=== PATIENT | female | born 1950 | race Caucasian/White ===

== ENCOUNTER 2023-07-16 09:19 | Inpatient (IN) | payer OTHER ==
[2023-07-16] VITALS (13 sets, daily range): BP systolic 86–208; PULSE 77–126; RESP 18–26; TEMP 98–98.9; O2SAT 94–100
[~2023-07-16] VITALS: Ht 152.4 cm; Wt 54.4 kg
[2023-07-16] MEDS ORDERED: methylPREDNISolone SOD SUCC/PF 62.5 MG/ML VIAL IVP ONE (09:30)
[2023-07-16] MEDS ORDERED: IPRATROPIUM/ALBUTEROL SULFATE 3 ML AMPUL.NEB (DUONEB) INH ONE (09:30)
[2023-07-16 09:45] LABS: BASOPHILS # (AUTO) 0.1 K/uL (0.0-0.2); BASOPHILS % (AUTO) 0.3 % (0.0-2.0); EOSINOPHILS # (AUTO) 0.1 K/uL (0.0-0.4); EOSINOPHILS % (AUTO) 0.6 % (0.0-4.0); HEMATOCRIT 37.9 % (36-48); HEMOGLOBIN 11.7 g/dL (12.0-16.0); LYMPHOCYTES # (AUTO) 2.4 K/uL (1.0-5.5); LYMPHOCYTES % (AUTO) 13.5 % (20.5-51.5); MEAN CORPUSCULAR HEMOGLOBIN 28 pg (27-31); MEAN CORPUSCULAR HGB CONC 31 % (32-36); MEAN CORPUSCULAR VOLUME 91 fL (79.0-98.0); MONOCYTES # (AUTO) 1.7 K/uL (0.0-1.0); MONOCYTES % (AUTO) 9.5 % (1.7-9.3); NEUTROPHILS # (AUTO) 13.6 K/uL (1.8-7.7); NEUTROPHILS % (AUTO) 76.1 % (40.0-70.0); PLATELET COUNT (AUTO) 495 K/uL (130-430); RED BLOOD CELL COUNT(AUTO) 4.16 MIL/uL (4.2-6.2); RED CELL DISTRIBUTION WIDTH 14.5 % (9.0-15.0); WHITE BLOOD COUNT (AUTO) 17.8 K/uL (4.8-10.8)
[2023-07-16] MEDS ORDERED: PROPOFOL DRIP 100 ML IV ONE ×3 (09:48→16:46)
[2023-07-16] MEDS ORDERED: LORA-259 PO (09:49)
[2023-07-16] MEDS ORDERED: PRO40 PO (09:49)
[2023-07-16] MEDS ORDERED: HYDR-4038 PO (09:49)
[2023-07-16] MEDS ORDERED: ALBU2.5V7 INH (09:49)
[2023-07-16] MEDS ORDERED: DOCU-144 PO (09:49)
[2023-07-16] MEDS ORDERED: PREG75CA PO (09:49)
[2023-07-16] MEDS ORDERED: LISI20TA30 PO (09:49)
[2023-07-16] MEDS ORDERED: ASA81 PO (09:49)
[2023-07-16] MEDS ORDERED: ETOMIDATE 20 MG/ 10 ML VIAL (AMIDATE) IVP ONE (10:00)
[2023-07-16] MEDS ORDERED: NS 500 ML IV ONE (10:00)
[2023-07-16 10:06] LABS: INR 0.9 (0.8-1.2); PROTHROMBIN TIME 9.4 SECS (9.5-12.5)
[2023-07-16] MEDS ORDERED: MIDAZOLAM HCL 5 MG/5 ML VIAL IVP ONE (10:15)
[2023-07-16] MEDS ORDERED: MIDAZOLAM HCL 5 MG/5 ML VIAL ONE (10:16)
[2023-07-16 10:23] LABS: ALANINE AMINOTRANSFERASE 25 U/L (12-78); ALBUMIN 3.5 g/dL (3.4-4.8); ASPARTATE AMINOTRANSFERASE 17 U/L (10-37); CALCIUM 9.6 mg/dL (8.4-11.0); CHLORIDE 99 mmol/L (98-107); CREATINE KINASE, TOTAL 42 U/L (26-192); GLUCOSE 166 mg/dL (74-106); LACTATE DEHYDROGENASE 203 U/L (81-234); SODIUM SERUM 139 mmol/L (136-145); TOTAL BILIRUBIN 0.1 mg/dL (0.0-1.0); TOTAL PROTEIN, SERUM 6.9 g/dL (6.4-8.3); UREA NITROGEN, BLOOD 23 mg/dL (8-21)
[2023-07-16 10:31] LABS: ANION GAP < 3 (5-15); CARBON DIOXIDE 44 mmol/L (23-29)
[2023-07-16 10:44] LABS: ABG O2 SAT% ESTIMATE 92.7 % (94.0-100.0); ALLEN'S TEST POSITIVE (P); BLOOD GAS HCO3 44.2 mmol/L (21.0-27.0); BLOOD GAS PCO2 167.2 mmHg (35.0-45.0); BLOOD GAS PO2 92.7 mmHg (75.0-100.0)
[2023-07-16] MEDS ORDERED: ASPIRIN 300 MG/SUPP.RECT SUPP RC ONE (10:45)
[2023-07-16 12:01] LABS: COVID19 ANTIGEN SOFIA FIA NEGATIVE (NEGATIVE)
[2023-07-16 12:02] LABS: INFLUENZA TYPE A Negative (NEGATIVE); INFLUENZA TYPE B NEGATIVE (NEGATIVE)
[2023-07-16 12:08] LABS: BILIRUBIN,URINE NEGATIVE (NEGATIVE); CLARITY/URINE CLEAR (CLEAR); COLOR,URINE YELLOW (YELLOW); GLUCOSE,URINE NEGATIVE (NEGATIVE); KETONES,URINE NEGATIVE (NEGATIVE); LEUKOCYTE ESTERASE ,URINE NEGATIVE (NEGATIVE); NITRITE, URINE NEGATIVE (NEGATIVE); PH,URINE 6.5 (5.0-8.0); PROTEIN URINE 1+ (NEGATIVE); UROBILINOGEN,URINE 0.2 (0.2-1.0)
[2023-07-16 12:14] LABS: BLOOD, URINE TRACE (NEGATIVE)
[2023-07-16 12:20] LABS: BACTERIA,URINE FEW /HPF (None Seen); MUCUS,URINE 1+ /LPF (None Seen)
[2023-07-16] MEDS: D5/0.45 NS 1,000 ML IV SCH ×2 (12:32→22:02)
[2023-07-16 14:23] LABS: BLOOD GAS PH 7.432 (7.350-7.450)
[2023-07-16 14:24] LABS: ABG O2 SAT% ESTIMATE 99.5 % (94.0-100.0); ALLEN'S TEST POSITIVE (P); BLOOD GAS BASE EXCESS 7.4 mmol/L (-3.0-3.0); BLOOD GAS HCO3 33.2 mmol/L (21.0-27.0); BLOOD GAS PO2 233.7 mmHg (75.0-100.0)
[2023-07-16] MEDS ORDERED: ENOXAPARIN SODIUM 30 MG/0.3 ML SYRINGE SUBCUT ONE (14:30)
[2023-07-16] MEDS ORDERED: PANTOPRAZOLE SODIUM 40 MG/VIAL (PROTONIX) IVP ONE (14:30)
[2023-07-16] MEDS ORDERED: PIPERACILLIN/TAZO 4.5GM/DEX-IS 100 ML IV ONE (17:30)
[2023-07-16] MEDS: METHYLPREDNISOLONE SOD SUCC 40 MG/ML VIAL IVP SCH (22:02)
[2023-07-17] VITALS (34 sets, daily range): BP systolic 111–203; PULSE 48–77; RESP 19–24; TEMP 97.1–97.7; O2SAT 94–100
[2023-07-17] MEDS: PROPOFOL DRIP 100 ML IV PRN ×2 (01:12→14:39)
[2023-07-17] MEDS: PIPERACILLIN/TAZO 4.5GM/DEX-IS 100 ML IV SCH ×3 (01:13→18:56)
[2023-07-17] MEDS: IPRATROPIUM/ALBUTEROL SULFATE 3 ML AMPUL.NEB (DUONEB) INH SCH ×3 (02:05→19:45)
[2023-07-17] MEDS: METHYLPREDNISOLONE SOD SUCC 40 MG/ML VIAL IVP SCH ×3 (05:10→20:54)
[2023-07-17] MEDS: D5/0.45 NS 1,000 ML IV SCH ×2 (05:11→09:18)
[2023-07-17 06:29] LABS: BASOPHILS % (AUTO) 0.1 % (0.0-2.0); HEMATOCRIT 32.1 % (36-48); HEMOGLOBIN 9.9 g/dL (12.0-16.0); LYMPHOCYTES # (AUTO) 0.8 K/uL (1.0-5.5); LYMPHOCYTES % (AUTO) 8.2 % (20.5-51.5); MEAN CORPUSCULAR HEMOGLOBIN 28 pg (27-31); MEAN CORPUSCULAR HGB CONC 31 % (32-36); MEAN CORPUSCULAR VOLUME 89 fL (79.0-98.0); MONOCYTES # (AUTO) 0.8 K/uL (0.0-1.0); MONOCYTES % (AUTO) 7.5 % (1.7-9.3); NEUTROPHILS # (AUTO) 8.7 K/uL (1.8-7.7); NEUTROPHILS % (AUTO) 84.2 % (40.0-70.0); PLATELET COUNT (AUTO) 288 K/uL (130-430); RED BLOOD CELL COUNT(AUTO) 3.58 MIL/uL (4.2-6.2); RED CELL DISTRIBUTION WIDTH 14.8 % (9.0-15.0); WHITE BLOOD COUNT (AUTO) 10.3 K/uL (4.8-10.8)
[2023-07-17 06:57] LABS: ALANINE AMINOTRANSFERASE 18 U/L (12-78); ALBUMIN 2.8 g/dL (3.4-4.8); ANION GAP 5 (5-15); ASPARTATE AMINOTRANSFERASE 17 U/L (10-37); CALCIUM 9.2 mg/dL (8.4-11.0); CARBON DIOXIDE 31 mmol/L (23-29); CHLORIDE 100 mmol/L (98-107); CREATININE 0.59 mg/dL (0.55-1.30); GLUCOSE 147 mg/dL (74-106); POTASSIUM 3.5 mmol/L (3.5-5.1); SODIUM SERUM 136 mmol/L (136-145); TOTAL BILIRUBIN 0.3 mg/dL (0.0-1.0); TOTAL PROTEIN, SERUM 5.5 g/dL (6.4-8.3); UREA NITROGEN, BLOOD 23 mg/dL (8-21)
[2023-07-17] MEDS: PANTOPRAZOLE SODIUM 40 MG/VIAL (PROTONIX) IVP SCH (09:19)
[2023-07-17] MEDS: ENOXAPARIN SODIUM 30 MG/0.3 ML SYRINGE SUBCUT SCH (09:19)
[2023-07-17] MEDS ORDERED: *TPN PER PHARMACY XX PRN (10:30)
[2023-07-17 11:21] LABS: PHOSPHORUS 2.9 mg/dL (2.7-4.5)
[2023-07-17] MEDS ORDERED: amLODIPine BESYLATE 10 MG TABLET PO ONE (18:45)
[2023-07-17] MEDS ORDERED: hydrALAZINE HCL 20 MG/ML VIAL IVP PRN (18:45)
[2023-07-17] MEDS ORDERED: VANCOMYCIN HCL 750 MG in NS 250 ML IV SCH (20:00)
[2023-07-17] MEDS ORDERED: MIDAZOLAM IN NACL,ISO-OSMOT/PF 100 ML IV PRN (20:45)
[2023-07-17] MEDS ORDERED: TPN PERIPHERAL 0.0001 ML, SODIUM CHLORIDE 40 MEQ, POTASSIUM CHLORIDE 20 MEQ, K PHOS 9 M... IV SCH ×9 (21:00)
[2023-07-17] MEDS: ACETAMINOPHEN 325 MG TABLET PO PRN (21:04)
[2023-07-18] VITALS (37 sets, daily range): BP systolic 116–179; PULSE 48–93; RESP 13–24; TEMP 96.5–98.7; O2SAT 95–98
[2023-07-18] MEDS ORDERED: DEXTROSE 50% JECT 50 ML DISP.SYRIN IVP PRN
[2023-07-18] MEDS: IPRATROPIUM/ALBUTEROL SULFATE 3 ML AMPUL.NEB (DUONEB) INH SCH ×4 (00:31→19:49)
[2023-07-18] MEDS: D5/0.45 NS 1,000 ML IV SCH ×3 (03:15→21:25)
[2023-07-18 05:18] LABS: BASOPHILS % (AUTO) 0.1 % (0.0-2.0); HEMOGLOBIN 9.5 g/dL (12.0-16.0); LYMPHOCYTES # (AUTO) 0.7 K/uL (1.0-5.5); LYMPHOCYTES % (AUTO) 7.6 % (20.5-51.5); MEAN CORPUSCULAR HEMOGLOBIN 28 pg (27-31); MEAN CORPUSCULAR HGB CONC 33 % (32-36); MEAN CORPUSCULAR VOLUME 87 fL (79.0-98.0); MONOCYTES # (AUTO) 0.5 K/uL (0.0-1.0); NEUTROPHILS # (AUTO) 7.5 K/uL (1.8-7.7); NEUTROPHILS % (AUTO) 86.3 % (40.0-70.0); PLATELET COUNT (AUTO) 273 K/uL (130-430); RED BLOOD CELL COUNT(AUTO) 3.34 MIL/uL (4.2-6.2); RED CELL DISTRIBUTION WIDTH 14.9 % (9.0-15.0); WHITE BLOOD COUNT (AUTO) 8.7 K/uL (4.8-10.8)
[2023-07-18 05:40] LABS: ANION GAP 10 (5-15); CALCIUM 9.1 mg/dL (8.4-11.0); CARBON DIOXIDE 29 mmol/L (23-29); CHLORIDE 101 mmol/L (98-107); CREATININE 0.49 mg/dL (0.55-1.30); GLUCOSE 152 mg/dL (74-106); SODIUM SERUM 140 mmol/L (136-145); UREA NITROGEN, BLOOD 15 mg/dL (8-21)
[2023-07-18] MEDS: METHYLPREDNISOLONE SOD SUCC 40 MG/ML VIAL IVP SCH ×3 (06:02→21:24)
[2023-07-18] MEDS: PIPERACILLIN/TAZO 4.5GM/DEX-IS 100 ML IV SCH ×3 (06:03→17:54)
[2023-07-18 06:12] LABS: POTASSIUM 2.7 mmol/L (3.5-5.1)
[2023-07-18] MEDS: POTASSIUM CHLORIDE 40 MEQ in NS 250 ML IV SCH ×2 (08:16→14:48)
[2023-07-18] MEDS: PANTOPRAZOLE SODIUM 40 MG/VIAL (PROTONIX) IVP SCH (09:26)
[2023-07-18] MEDS: ENOXAPARIN SODIUM 30 MG/0.3 ML SYRINGE SUBCUT SCH (09:26)
[2023-07-18] MEDS: amLODIPine BESYLATE 10 MG TABLET PO SCH (09:27)
[2023-07-18] MEDS ORDERED: *HEPARIN PER PHARMACY XX PRN (11:30)
[2023-07-18] MEDS ORDERED: HEPARIN SODIUM,PORCINE 3000 UNITS/0.6 ML BOLUS IVP PRN (11:45)
[2023-07-18] MEDS ORDERED: BISACODYL 10 MG/SUPPOSITORY RC PRN (15:15)
[2023-07-18] MEDS: HEPARIN 25,000 UNITS in 250 ML PREMIX IV PRN (17:56)
[2023-07-18] MEDS: DOCUSATE SODIUM 100 MG CAPSULE PO SCH (21:24)
[2023-07-19] VITALS (32 sets, daily range): BP systolic 118–181; PULSE 46–91; RESP 19–29; TEMP 97.9–98.4; O2SAT 93–99
[2023-07-19] MEDS: IPRATROPIUM/ALBUTEROL SULFATE 3 ML AMPUL.NEB (DUONEB) INH SCH ×4 (00:44→19:56)
[2023-07-19] MEDS: PIPERACILLIN/TAZO 4.5GM/DEX-IS 100 ML IV SCH ×3 (02:39→17:26)
[2023-07-19 05:22] LABS: BASOPHILS % (AUTO) 0.1 % (0.0-2.0); HEMATOCRIT 29.9 % (36-48); HEMOGLOBIN 9.5 g/dL (12.0-16.0); LYMPHOCYTES # (AUTO) 1.1 K/uL (1.0-5.5); MEAN CORPUSCULAR HEMOGLOBIN 28 pg (27-31); MEAN CORPUSCULAR HGB CONC 32 % (32-36); MEAN CORPUSCULAR VOLUME 88 fL (79.0-98.0); MONOCYTES # (AUTO) 0.9 K/uL (0.0-1.0); MONOCYTES % (AUTO) 8.3 % (1.7-9.3); NEUTROPHILS # (AUTO) 8.3 K/uL (1.8-7.7); NEUTROPHILS % (AUTO) 80.6 % (40.0-70.0); PLATELET COUNT (AUTO) 279 K/uL (130-430); RED BLOOD CELL COUNT(AUTO) 3.42 MIL/uL (4.2-6.2); RED CELL DISTRIBUTION WIDTH 15.1 % (9.0-15.0); WHITE BLOOD COUNT (AUTO) 10.3 K/uL (4.8-10.8)
[2023-07-19] MEDS: METHYLPREDNISOLONE SOD SUCC 40 MG/ML VIAL IVP SCH ×3 (05:51→21:38)
[2023-07-19 05:52] LABS: ALANINE AMINOTRANSFERASE 19 U/L (12-78); ALBUMIN 2.7 g/dL (3.4-4.8); ANION GAP 8 (5-15); ASPARTATE AMINOTRANSFERASE 13 U/L (10-37); CARBON DIOXIDE 27 mmol/L (23-29); CHLORIDE 102 mmol/L (98-107); GLUCOSE 130 mg/dL (74-106); POTASSIUM 3.6 mmol/L (3.5-5.1); SODIUM SERUM 137 mmol/L (136-145); TOTAL BILIRUBIN 0.3 mg/dL (0.0-1.0); TOTAL PROTEIN, SERUM 5.3 g/dL (6.4-8.3); UREA NITROGEN, BLOOD 13 mg/dL (8-21)
[2023-07-19] MEDS: DOCUSATE SODIUM 100 MG CAPSULE PO SCH ×2 (09:00→21:24)
[2023-07-19] MEDS: amLODIPine BESYLATE 10 MG TABLET PO SCH (09:57)
[2023-07-19] MEDS: PANTOPRAZOLE SODIUM 40 MG/VIAL (PROTONIX) IVP SCH (09:58)
[2023-07-19] MEDS: D5/0.45 NS 1,000 ML IV SCH ×2 (09:58→19:15)
[2023-07-19 11:19] LABS: ABG O2 SAT% ESTIMATE 98.7 % (94.0-100.0); BLOOD GAS BASE EXCESS 2.4 mmol/L (-3.0-3.0); BLOOD GAS HCO3 26.4 mmol/L (21.0-27.0); BLOOD GAS PCO2 38.9 mmHg (35.0-45.0); BLOOD GAS PH 7.449 (7.350-7.450); BLOOD GAS PO2 128.3 mmHg (75.0-100.0)
[2023-07-19 11:26] LABS: ALLEN'S TEST POSITIVE (P)
[2023-07-19] MEDS: HEPARIN 25,000 UNITS in 250 ML PREMIX IV PRN ×3 (12:00→21:37)
[2023-07-19] MEDS: ACETAMINOPHEN 325 MG TABLET PO PRN (21:31)
[2023-07-20] VITALS (25 sets, daily range): BP systolic 105–155; PULSE 58–92; RESP 16–25; TEMP 96.2–98.7; O2SAT 95–98
[2023-07-20] MEDS: IPRATROPIUM/ALBUTEROL SULFATE 3 ML AMPUL.NEB (DUONEB) INH SCH ×3 (01:22→14:32)
[2023-07-20] MEDS: PIPERACILLIN/TAZO 4.5GM/DEX-IS 100 ML IV SCH ×2 (02:09→08:51)
[2023-07-20] MEDS: D5/0.45 NS 1,000 ML IV SCH ×2 (05:04→22:31)
[2023-07-20 05:44] LABS: BASOPHILS % (AUTO) 0.1 % (0.0-2.0); HEMATOCRIT 34.3 % (36-48); HEMOGLOBIN 10.8 g/dL (12.0-16.0); LYMPHOCYTES # (AUTO) 0.6 K/uL (1.0-5.5); LYMPHOCYTES % (AUTO) 6.9 % (20.5-51.5); MEAN CORPUSCULAR HEMOGLOBIN 28 pg (27-31); MEAN CORPUSCULAR HGB CONC 31 % (32-36); MEAN CORPUSCULAR VOLUME 88 fL (79.0-98.0); MONOCYTES # (AUTO) 0.5 K/uL (0.0-1.0); MONOCYTES % (AUTO) 5.6 % (1.7-9.3); NEUTROPHILS # (AUTO) 7.4 K/uL (1.8-7.7); NEUTROPHILS % (AUTO) 87.4 % (40.0-70.0); PLATELET COUNT (AUTO) 318 K/uL (130-430); RED BLOOD CELL COUNT(AUTO) 3.89 MIL/uL (4.2-6.2); WHITE BLOOD COUNT (AUTO) 8.5 K/uL (4.8-10.8)
[2023-07-20] MEDS: METHYLPREDNISOLONE SOD SUCC 40 MG/ML VIAL IVP SCH ×3 (06:35→21:59)
[2023-07-20 06:53] LABS: ALANINE AMINOTRANSFERASE 21 U/L (12-78); ANION GAP 6 (5-15); ASPARTATE AMINOTRANSFERASE 11 U/L (10-37); CALCIUM 9.5 mg/dL (8.4-11.0); CARBON DIOXIDE 32 mmol/L (23-29); CHLORIDE 100 mmol/L (98-107); CREATININE 0.49 mg/dL (0.55-1.30); GLUCOSE 138 mg/dL (74-106); POTASSIUM 3.3 mmol/L (3.5-5.1); SODIUM SERUM 138 mmol/L (136-145); TOTAL BILIRUBIN 0.3 mg/dL (0.0-1.0); TOTAL PROTEIN, SERUM 6.1 g/dL (6.4-8.3); UREA NITROGEN, BLOOD 13 mg/dL (8-21)
[2023-07-20] MEDS: HEPARIN 25,000 UNITS in 250 ML PREMIX IV PRN ×3 (07:14→22:46)
[2023-07-20] MEDS: DOCUSATE SODIUM 100 MG CAPSULE PO SCH ×2 (08:49→21:58)
[2023-07-20] MEDS: PANTOPRAZOLE SODIUM 40 MG/VIAL (PROTONIX) IVP SCH (08:49)
[2023-07-20] MEDS: amLODIPine BESYLATE 10 MG TABLET PO SCH (08:51)
[2023-07-20] MEDS: CEFEPIME 2 GM in D5W 100 ML IV SCH (21:58)
[2023-07-20] MEDS: ACETAMINOPHEN 325 MG TABLET PO PRN (23:21)
[2023-07-21] VITALS (12 sets, daily range): BP systolic 119–162; PULSE 55–71; RESP 18–20; TEMP 96.3–98.8; O2SAT 97–98
[2023-07-21] MEDS: IPRATROPIUM/ALBUTEROL SULFATE 3 ML AMPUL.NEB (DUONEB) INH SCH ×5 (01:11→20:00)
[2023-07-21] MEDS: D5/0.45 NS 1,000 ML IV SCH ×3 (01:12→20:48)
[2023-07-21 05:10] LABS: BASOPHILS % (AUTO) 0.1 % (0.0-2.0); HEMATOCRIT 36.4 % (36-48); HEMOGLOBIN 11.3 g/dL (12.0-16.0); LYMPHOCYTES # (AUTO) 0.9 K/uL (1.0-5.5); LYMPHOCYTES % (AUTO) 7.6 % (20.5-51.5); MEAN CORPUSCULAR HEMOGLOBIN 27 pg (27-31); MEAN CORPUSCULAR HGB CONC 31 % (32-36); MEAN CORPUSCULAR VOLUME 88 fL (79.0-98.0); MONOCYTES # (AUTO) 0.9 K/uL (0.0-1.0); MONOCYTES % (AUTO) 7.9 % (1.7-9.3); NEUTROPHILS # (AUTO) 9.6 K/uL (1.8-7.7); NEUTROPHILS % (AUTO) 84.4 % (40.0-70.0); PLATELET COUNT (AUTO) 359 K/uL (130-430); RED BLOOD CELL COUNT(AUTO) 4.12 MIL/uL (4.2-6.2); RED CELL DISTRIBUTION WIDTH 14.5 % (9.0-15.0); WHITE BLOOD COUNT (AUTO) 11.4 K/uL (4.8-10.8)
[2023-07-21] MEDS: METHYLPREDNISOLONE SOD SUCC 40 MG/ML VIAL IVP SCH ×3 (05:35→20:44)
[2023-07-21] MEDS: HEPARIN 25,000 UNITS in 250 ML PREMIX IV PRN ×2 (06:10→15:42)
[2023-07-21] MEDS: DOCUSATE SODIUM 100 MG CAPSULE PO SCH ×2 (08:26→20:44)
[2023-07-21] MEDS: amLODIPine BESYLATE 10 MG TABLET PO SCH (08:27)
[2023-07-21] MEDS: PANTOPRAZOLE SODIUM 40 MG/VIAL (PROTONIX) IVP SCH (08:27)
[2023-07-21] MEDS: CEFEPIME 2 GM in D5W 100 ML IV SCH ×2 (08:30→20:46)
[2023-07-21] MEDS: HEPARIN SODIUM,PORCINE 2000 UNITS/0.4 ML BOLUS IVP PRN ×2 (15:17→23:53)
[2023-07-21] MEDS: traZODone HCL 50 MG TABLET (DESYREL) PO PRN (22:53)
[2023-07-21] MEDS: ACETAMINOPHEN 325 MG TABLET PO PRN (22:54)
[2023-07-22] VITALS (15 sets, daily range): BP systolic 126–161; PULSE 54–88; RESP 16–20; TEMP 98.1–99.1; O2SAT 97–100
[2023-07-22] MEDS: HEPARIN 25,000 UNITS in 250 ML PREMIX IV PRN ×2 (00:01→14:07)
[2023-07-22] MEDS: IPRATROPIUM/ALBUTEROL SULFATE 3 ML AMPUL.NEB (DUONEB) INH SCH ×4 (01:30→20:23)
[2023-07-22] MEDS: METHYLPREDNISOLONE SOD SUCC 40 MG/ML VIAL IVP SCH ×3 (06:27→20:59)
[2023-07-22] MEDS: D5/0.45 NS 1,000 ML IV SCH ×3 (07:15→21:21)
[2023-07-22] MEDS: PANTOPRAZOLE SODIUM 40 MG/VIAL (PROTONIX) IVP SCH (08:15)
[2023-07-22] MEDS: DOCUSATE SODIUM 100 MG CAPSULE PO SCH ×2 (08:16→21:00)
[2023-07-22] MEDS: CEFEPIME 2 GM in D5W 100 ML IV SCH ×2 (08:16→20:59)
[2023-07-22] MEDS: amLODIPine BESYLATE 10 MG TABLET PO SCH (08:17)
[2023-07-22] MEDS: ACETAMINOPHEN 325 MG TABLET PO PRN ×2 (11:18→21:01)
[2023-07-22] MEDS: HEPARIN SODIUM,PORCINE 2000 UNITS/0.4 ML BOLUS IVP PRN (14:04)
[2023-07-22] MEDS: traZODone HCL 50 MG TABLET (DESYREL) PO PRN (21:00)
[2023-07-23] VITALS (13 sets, daily range): BP systolic 118–138; PULSE 50–75; RESP 16–19; TEMP 97.1–98.5; O2SAT 96–100
[2023-07-23] MEDS: HEPARIN 25,000 UNITS in 250 ML PREMIX IV PRN ×4 (01:37→21:50)
[2023-07-23] MEDS: IPRATROPIUM/ALBUTEROL SULFATE 3 ML AMPUL.NEB (DUONEB) INH SCH ×4 (03:09→19:50)
[2023-07-23] MEDS: ACETAMINOPHEN 325 MG TABLET PO PRN ×2 (05:25→23:24)
[2023-07-23] MEDS ORDERED: METHYLPREDNISOLONE SOD SUCC 40 MG/ML VIAL IVP SCH (06:00)
[2023-07-23] MEDS: DOCUSATE SODIUM 100 MG CAPSULE PO SCH ×2 (09:15→21:00)
[2023-07-23] MEDS: amLODIPine BESYLATE 10 MG TABLET PO SCH (09:15)
[2023-07-23] MEDS: PANTOPRAZOLE SODIUM 40 MG/VIAL (PROTONIX) IVP SCH (09:16)
[2023-07-23] MEDS: CEFEPIME 2 GM in D5W 100 ML IV SCH ×2 (09:16→21:54)
[2023-07-23 12:47] LABS: BASOPHILS % (AUTO) 0.1 % (0.0-2.0); HEMATOCRIT 32.5 % (36-48); HEMOGLOBIN 10.3 g/dL (12.0-16.0); LYMPHOCYTES # (AUTO) 0.6 K/uL (1.0-5.5); LYMPHOCYTES % (AUTO) 5.5 % (20.5-51.5); MEAN CORPUSCULAR HEMOGLOBIN 28 pg (27-31); MEAN CORPUSCULAR HGB CONC 32 % (32-36); MEAN CORPUSCULAR VOLUME 89 fL (79.0-98.0); MONOCYTES # (AUTO) 1.1 K/uL (0.0-1.0); MONOCYTES % (AUTO) 9.8 % (1.7-9.3); NEUTROPHILS # (AUTO) 9.1 K/uL (1.8-7.7); NEUTROPHILS % (AUTO) 84.6 % (40.0-70.0); PLATELET COUNT (AUTO) 293 K/uL (130-430); RED BLOOD CELL COUNT(AUTO) 3.66 MIL/uL (4.2-6.2); RED CELL DISTRIBUTION WIDTH 13.9 % (9.0-15.0); WHITE BLOOD COUNT (AUTO) 10.8 K/uL (4.8-10.8)
[2023-07-23] MEDS ORDERED: BENZOCAINE 20% 0.5mL UD SPRAY MM ONE ×2 (13:03→13:42)
[2023-07-23] MEDS ORDERED: LIDOCAINE 2% JELLY UROJECT 10 ML MM ONE (13:03)
[2023-07-23] MEDS ORDERED: fentaNYL CITRATE/PF 100 MCG/2 ML AMP ONE (13:03)
[2023-07-23] MEDS ORDERED: MIDAZOLAM HCL 5 MG/5 ML VIAL ONE (13:03)
[2023-07-23] MEDS: METHYLPREDNISOLONE SOD SUCC 40 MG/ML VIAL IVP SCH ×2 (16:01→21:59)
[2023-07-23] MEDS: D5/0.45 NS 1,000 ML IV SCH ×2 (16:01→23:15)
[2023-07-24] VITALS (10 sets, daily range): BP systolic 126–162; PULSE 56–70; RESP 18–20; TEMP 98.1–98.4; O2SAT 98–100
[2023-07-24] MEDS: IPRATROPIUM/ALBUTEROL SULFATE 3 ML AMPUL.NEB (DUONEB) INH SCH ×4 (01:45→20:02)
[2023-07-24] MEDS: D5/0.45 NS 1,000 ML IV SCH ×2 (05:30→18:22)
[2023-07-24] MEDS: METHYLPREDNISOLONE SOD SUCC 40 MG/ML VIAL IVP SCH ×3 (05:31→21:00)
[2023-07-24 06:31] LABS: HEMATOCRIT 34.7 % (36-48); HEMOGLOBIN 10.7 g/dL (12.0-16.0); LYMPHOCYTES # (AUTO) 0.8 K/uL (1.0-5.5); LYMPHOCYTES % (AUTO) 7.4 % (20.5-51.5); MEAN CORPUSCULAR HEMOGLOBIN 28 pg (27-31); MEAN CORPUSCULAR HGB CONC 31 % (32-36); MEAN CORPUSCULAR VOLUME 89 fL (79.0-98.0); MONOCYTES # (AUTO) 0.8 K/uL (0.0-1.0); MONOCYTES % (AUTO) 7.3 % (1.7-9.3); NEUTROPHILS # (AUTO) 9.8 K/uL (1.8-7.7); NEUTROPHILS % (AUTO) 85.3 % (40.0-70.0); PLATELET COUNT (AUTO) 314 K/uL (130-430); RED CELL DISTRIBUTION WIDTH 14.1 % (9.0-15.0); WHITE BLOOD COUNT (AUTO) 11.5 K/uL (4.8-10.8)
[2023-07-24] MEDS: HEPARIN 25,000 UNITS in 250 ML PREMIX IV PRN (06:50)
[2023-07-24] MEDS: amLODIPine BESYLATE 10 MG TABLET PO SCH (10:12)
[2023-07-24] MEDS: PANTOPRAZOLE SODIUM 40 MG/VIAL (PROTONIX) IVP SCH (10:12)
[2023-07-24] MEDS: DOCUSATE SODIUM 100 MG CAPSULE PO SCH ×2 (10:12→21:00)
[2023-07-24] MEDS: CEFEPIME 2 GM in D5W 100 ML IV SCH ×2 (10:13→21:01)
[2023-07-24] MEDS ORDERED: APIXABAN 2.5 MG TABLET PO ONE (10:45)
[2023-07-24] MEDS ORDERED: BALSAM PERU/CASTOR OIL 56.7 GM OINT...G. TP ONE (17:00)
[2023-07-24] MEDS ORDERED: MENTHOL/ZINC OXIDE 113 GM OINT. TP PRN (17:30)
[2023-07-24] MEDS: ACETAMINOPHEN 325 MG TABLET PO PRN (20:59)
[2023-07-24] MEDS: traZODone HCL 50 MG TABLET (DESYREL) PO PRN (21:00)
[2023-07-24] MEDS: APIXABAN 2.5 MG TABLET PO SCH (21:04)
[2023-07-25] VITALS (10 sets, daily range): BP systolic 107–129; PULSE 60–69; RESP 17–20; TEMP 97.8–98.3; O2SAT 97–100
[2023-07-25] MEDS: IPRATROPIUM/ALBUTEROL SULFATE 3 ML AMPUL.NEB (DUONEB) INH SCH ×4 (01:30→19:47)
[2023-07-25] MEDS: ACETAMINOPHEN 325 MG TABLET PO PRN (03:22)
[2023-07-25] MEDS: D5/0.45 NS 1,000 ML IV SCH ×2 (04:05→16:35)
[2023-07-25] MEDS: METHYLPREDNISOLONE SOD SUCC 40 MG/ML VIAL IVP SCH ×3 (05:23→22:02)
[2023-07-25] MEDS: PANTOPRAZOLE SODIUM 40 MG/VIAL (PROTONIX) IVP SCH (09:00)
[2023-07-25] MEDS ORDERED: BALSAM PERU/CASTOR OIL 56.7 GM OINT...G. TP SCH (09:00)
[2023-07-25] MEDS: DOCUSATE SODIUM 100 MG CAPSULE PO SCH ×2 (09:00→21:45)
[2023-07-25] MEDS: APIXABAN 2.5 MG TABLET PO SCH ×2 (10:04→21:45)
[2023-07-25] MEDS: CEFEPIME 2 GM in D5W 100 ML IV SCH ×2 (10:04→22:03)
[2023-07-25] MEDS: amLODIPine BESYLATE 10 MG TABLET PO SCH (10:06)
[2023-07-25] MEDS ORDERED: LORazepam 1 MG TABLET PO PRN (18:45)
[2023-07-25] MEDS: traZODone HCL 50 MG TABLET (DESYREL) PO PRN (23:37)
[2023-07-26 00:32] VITALS: O2SAT 99
[2023-07-26 00:34] VITALS: BP_SYST 129; PULSE 62; RESP 20; TEMP 98.3; O2SAT 99
[2023-07-26] MEDS: ACETAMINOPHEN 325 MG TABLET PO PRN ×2 (01:09→08:28)
[2023-07-26] MEDS: D5/0.45 NS 1,000 ML IV SCH (01:57)
[2023-07-26 02:30] VITALS: PULSE 62
[2023-07-26] MEDS: IPRATROPIUM/ALBUTEROL SULFATE 3 ML AMPUL.NEB (DUONEB) INH SCH (03:04)
[2023-07-26 05:42] VITALS: BP_SYST 126; PULSE 63; RESP 18; TEMP 97.3; O2SAT 100
[2023-07-26] MEDS: METHYLPREDNISOLONE SOD SUCC 40 MG/ML VIAL IVP SCH (05:43)
[2023-07-26 08:00] VITALS: BP_SYST 126; PULSE 54; RESP 16; TEMP 97.3; O2SAT 100
== END 2023-07-26 08:55 | disposition home health service (06) | DRG 208 ==
LOC: SED 09:19 → SIC 11:12 → STU 07-20 19:06
PROVIDERS: ADMIT Family Medicine; ATTEND Family Medicine
PROC: 5A1945Z Respiratory Ventilation, 24-96 Consecutive Hours (ICD-10-PCS; principal; 2023-07-16)
PROC: 0BH17EZ Insertion of Endotracheal Airway into Trachea, Via Natural or Artificial Opening (ICD-10-PCS; 2023-07-16)
PROC: 5A09357 Assistance with Respiratory Ventilation, Less than 24 Consecutive Hours, Continuous Positive Airway Pressure (ICD-10-PCS; 2023-07-21)
PROC: 5A09357 Assistance with Respiratory Ventilation, Less than 24 Consecutive Hours, Continuous Positive Airway Pressure (ICD-10-PCS; 2023-07-22)
PROC: 5A09357 Assistance with Respiratory Ventilation, Less than 24 Consecutive Hours, Continuous Positive Airway Pressure (ICD-10-PCS; 2023-07-23)
PROC: 5A09357 Assistance with Respiratory Ventilation, Less than 24 Consecutive Hours, Continuous Positive Airway Pressure (ICD-10-PCS; 2023-07-24)
PROC: 5A09357 Assistance with Respiratory Ventilation, Less than 24 Consecutive Hours, Continuous Positive Airway Pressure (ICD-10-PCS; 2023-07-25)
DX: J96.01 Acute respiratory failure with hypoxia (principal); G93.41 Metabolic encephalopathy; I21.A1 Myocardial infarction type 2; J18.9 Pneumonia, unspecified organism; J44.1 Chronic obstructive pulmonary disease with (acute) exacerbation; E46 Unspecified protein-calorie malnutrition; R78.81 Bacteremia; J44.0 Chronic obstructive pulmonary disease with (acute) lower respiratory infection; G89.4 Chronic pain syndrome; Z20.822 Contact with and (suspected) exposure to COVID-19; F03.90 Unspecified dementia, unspecified severity, without behavioral disturbance, psychotic disturbance, mood disturbance, and anxiety; F41.9 Anxiety disorder, unspecified; I11.0 Hypertensive heart disease with heart failure; I50.9 Heart failure, unspecified; E03.9 Hypothyroidism, unspecified; Z68.23 Body mass index [BMI] 23.0-23.9, adult; Z87.01 Personal history of pneumonia (recurrent); Z79.82 Long term (current) use of aspirin; Z79.899 Other long term (current) drug therapy
CPT/HCPCS: 36415; 36600; 71045; 71275; 76376; 80048; 80053; 81000; 82550; 82800-TC; 82803; 82962; 83605; 83615; 83735; 83880; 84100; 84478; 84484; 85025; 85379; 85384; 85610-TC; 85651-TC; 85730-TC; 87040; 87070-TC; 87081; 87086; 87205-TC; 93005; 93306; 93312; 94002; 94003; 94640; 94660; 94760; 97110-GP; 97116-GP; 97530-GP; 99291; C9113; G0378; J0360; J0692; J1030; J1644; J1650; J2250; J2543; J2704; J2930; J3010; J3475; J3480; J3490; J7050; J7060; J7131

== ENCOUNTER 2023-09-14 11:45 | Inpatient (IN) | payer OTHER, MEDICARE ==
[~2023-09-14] VITALS: Ht 162.6 cm; Wt 49.9 kg
[2023-09-14 11:45] VITALS: BP_SYST 156; PULSE 75; RESP 18; TEMP 97.8; O2SAT 99
[2023-09-14] MEDS ORDERED: IPRATROPIUM/ALBUTEROL SULFATE 3 ML AMPUL.NEB (DUONEB) ONE (11:56)
[2023-09-14] MEDS ORDERED: IPRATROPIUM/ALBUTEROL SULFATE 3 ML AMPUL.NEB (DUONEB) INH ONE (12:00)
[2023-09-14] MEDS ORDERED: AMLO10TA88 PO (12:00)
[2023-09-14] MEDS ORDERED: methylPREDNISolone SOD SUCC/PF 62.5 MG/ML VIAL IVP ONE (12:00)
[2023-09-14] MEDS ORDERED: APIX5TAB PO (12:00)
[2023-09-14] MEDS ORDERED: TRAZ-250 PO (12:05)
[2023-09-14] MEDS ORDERED: PRED10TA PO (12:05)
[2023-09-14] MEDS ORDERED: ALPR1TAB7 PO (12:05)
[2023-09-14 12:17] LABS: BASOPHILS % (AUTO) 0.2 % (0.0-2.0); EOSINOPHILS # (AUTO) 0.1 K/uL (0.0-0.4); EOSINOPHILS % (AUTO) 0.7 % (0.0-4.0); HEMATOCRIT 35.3 % (36-48); HEMOGLOBIN 10.6 g/dL (12.0-16.0); LYMPHOCYTES # (AUTO) 0.5 K/uL (1.0-5.5); MEAN CORPUSCULAR HEMOGLOBIN 27 pg (27-31); MEAN CORPUSCULAR HGB CONC 30 % (32-36); MEAN CORPUSCULAR VOLUME 91 fL (79.0-98.0); MONOCYTES # (AUTO) 0.7 K/uL (0.0-1.0); MONOCYTES % (AUTO) 5.4 % (1.7-9.3); NEUTROPHILS # (AUTO) 10.9 K/uL (1.8-7.7); NEUTROPHILS % (AUTO) 89.7 % (40.0-70.0); PLATELET COUNT (AUTO) 359 K/uL (130-430); RED BLOOD CELL COUNT(AUTO) 3.88 MIL/uL (4.2-6.2); RED CELL DISTRIBUTION WIDTH 13.5 % (9.0-15.0)
[2023-09-14] MEDS ORDERED: PRO40 PO (12:18)
[2023-09-14] MEDS ORDERED: PREG75CA PO (12:18)
[2023-09-14 12:24] LABS: WHITE BLOOD COUNT (AUTO) 12.1 K/uL (4.8-10.8)
[2023-09-14 12:28] LABS: COVID19 ANTIGEN SOFIA FIA NEGATIVE (NEGATIVE); INFLUENZA TYPE A Negative (NEGATIVE); INFLUENZA TYPE B NEGATIVE (NEGATIVE)
[2023-09-14 12:36] LABS: ALANINE AMINOTRANSFERASE 12 U/L (12-78); ALBUMIN 2.7 g/dL (3.4-4.8); ASPARTATE AMINOTRANSFERASE 9 U/L (10-37); CALCIUM 9.6 mg/dL (8.4-11.0); CHLORIDE 97 mmol/L (98-107); CREATININE 0.35 mg/dL (0.55-1.30); GLUCOSE 111 mg/dL (74-106); POTASSIUM 3.6 mmol/L (3.5-5.1); SODIUM SERUM 142 mmol/L (136-145); TOTAL BILIRUBIN 0.2 mg/dL (0.0-1.0); TOTAL PROTEIN, SERUM 6.8 g/dL (6.4-8.3); UREA NITROGEN, BLOOD 29 mg/dL (8-21)
[2023-09-14 12:49] LABS: ANION GAP 0 (5-15); BILIRUBIN,DIRECT 0.1 mg/dL (0.0-0.3); CARBON DIOXIDE 47 mmol/L (23-29)
[2023-09-14] MEDS ORDERED: cefTRIAXone 1 GM in D5W 50 ML IV ONE (13:00)
[2023-09-14] MEDS ORDERED: AZITHROMYCIN 500 MG in NS 250 ML IV ONE (13:00)
[2023-09-14] MEDS ORDERED: cefTRIAXone 1 GM VIAL ONE (13:28)
[2023-09-14] MEDS ORDERED: AZITHROMYCIN 500 MG/VIAL (ZITHROMAX) IV ONE (14:16)
[2023-09-14] MEDS ORDERED: ACETAMINOPHEN 325 MG TABLET PO PRN ×2 (15:00→15:15)
[2023-09-14] MEDS ORDERED: ONDANSETRON HCL 4 MG/2 ML VIAL IVP PRN (15:00)
[2023-09-14] MEDS ORDERED: LORazepam 2 MG/ML VIAL IVP PRN (15:00)
[2023-09-14] MEDS ORDERED: NALOXONE HCL 0.4 MG/ML AMP (NARCAN) IVP PRN ×2 (15:00)
[2023-09-14] MEDS: ALBUTEROL SULFATE 0.083% 2.5 MG/3 ML VIAL.NEB INH SCH ×2 (15:00→23:34)
[2023-09-14] MEDS ORDERED: HYDROcodone/ACETAMIN 5-325 MG TAB (NORCO/ VICODIN) PO PRN ×2 (15:00→15:30)
[2023-09-14] MEDS: IPRATROPIUM BROM 0.5 MG/2.5 ML VIAL.NEB (ATROVENT) INH SCH ×2 (15:00→23:34)
[2023-09-14] MEDS ORDERED: amLODIPine BESYLATE 10 MG TABLET PO ONE (15:15)
[2023-09-14] MEDS ORDERED: PREGABALIN 75 MG CAPSULE (LYRICA) PO ONE (15:30)
[2023-09-14] MEDS ORDERED: ALPRAZolam 0.25 MG TABLET PO PRN (15:30)
[2023-09-14] MEDS ORDERED: PANTOPRAZOLE SODIUM 40 MG TAB PO ONE ×2 (15:30→16:13)
[2023-09-14] MEDS ORDERED: PANTOPRAZOLE SODIUM 40 MG/VIAL (PROTONIX) ONE (16:02)
[2023-09-14] MEDS ORDERED: PREGABALIN 75 MG CAPSULE (LYRICA) ONE (16:04)
[2023-09-14 16:53] VITALS: BP_SYST 149; PULSE 69; O2SAT 96
[2023-09-14 20:32] VITALS: BP_SYST 124; PULSE 74; RESP 22; TEMP 98.4; O2SAT 97
[2023-09-14] MEDS ORDERED: NON-FORMULARY MEDICATION (Apixaban (Eliquis) 1 TAB) PO SCH (21:00)
[2023-09-14] MEDS: traZODone HCL 50 MG TABLET (DESYREL) PO SCH (22:16)
[2023-09-14] MEDS: METHYLPREDNISOLONE SOD SUCC 40 MG/ML VIAL IVP SCH (22:16)
[2023-09-14] MEDS: APIXABAN 2.5 MG TABLET PO SCH (22:17)
[2023-09-14] MEDS: NORMAL SALINE 5 ML DISP.SYRIN IVF SCH (22:18)
[2023-09-14 23:35] VITALS: O2SAT 97
[2023-09-15] VITALS (11 sets, daily range): BP systolic 119–127; PULSE 61–85; RESP 15–19; TEMP 97–98.2; O2SAT 94–100
[2023-09-15] MEDS: ALBUTEROL SULFATE 0.083% 2.5 MG/3 ML VIAL.NEB INH SCH ×6 (03:25→23:54)
[2023-09-15] MEDS: IPRATROPIUM BROM 0.5 MG/2.5 ML VIAL.NEB (ATROVENT) INH SCH ×6 (03:25→23:54)
[2023-09-15 06:24] LABS: ALANINE AMINOTRANSFERASE 13 U/L (12-78); ALBUMIN 2.7 g/dL (3.4-4.8); ANION GAP 0 (5-15); ASPARTATE AMINOTRANSFERASE 10 U/L (10-37); CALCIUM 9.9 mg/dL (8.4-11.0); CHLORIDE 97 mmol/L (98-107); CREATININE 0.39 mg/dL (0.55-1.30); GLUCOSE 119 mg/dL (74-106); POTASSIUM 4.1 mmol/L (3.5-5.1); SODIUM SERUM 143 mmol/L (136-145); TOTAL BILIRUBIN 0.2 mg/dL (0.0-1.0); UREA NITROGEN, BLOOD 29 mg/dL (8-21)
[2023-09-15 07:10] LABS: CARBON DIOXIDE 46 mmol/L (23-29)
[2023-09-15 07:40] LABS: BASOPHILS % (AUTO) 0.2 % (0.0-2.0); HEMATOCRIT 34.9 % (36-48); HEMOGLOBIN 10.5 g/dL (12.0-16.0); LYMPHOCYTES # (AUTO) 0.6 K/uL (1.0-5.5); LYMPHOCYTES % (AUTO) 7.2 % (20.5-51.5); MEAN CORPUSCULAR HEMOGLOBIN 27 pg (27-31); MEAN CORPUSCULAR HGB CONC 30 % (32-36); MEAN CORPUSCULAR VOLUME 91 fL (79.0-98.0); MONOCYTES # (AUTO) 0.1 K/uL (0.0-1.0); MONOCYTES % (AUTO) 1.8 % (1.7-9.3); NEUTROPHILS # (AUTO) 7.5 K/uL (1.8-7.7); NEUTROPHILS % (AUTO) 90.8 % (40.0-70.0); PLATELET COUNT (AUTO) 449 K/uL (130-430); RED BLOOD CELL COUNT(AUTO) 3.83 MIL/uL (4.2-6.2); RED CELL DISTRIBUTION WIDTH 13.5 % (9.0-15.0); WHITE BLOOD COUNT (AUTO) 8.3 K/uL (4.8-10.8)
[2023-09-15] MEDS: METHYLPREDNISOLONE SOD SUCC 40 MG/ML VIAL IVP SCH ×2 (10:09→21:00)
[2023-09-15] MEDS: PREGABALIN 75 MG CAPSULE (LYRICA) PO SCH (10:10)
[2023-09-15] MEDS: APIXABAN 2.5 MG TABLET PO SCH ×2 (10:12→21:00)
[2023-09-15] MEDS: PANTOPRAZOLE SODIUM 40 MG TAB PO SCH (10:13)
[2023-09-15] MEDS: amLODIPine BESYLATE 10 MG TABLET PO SCH (10:14)
[2023-09-15] MEDS: cefTRIAXone 1 GM IVPB PREMIX 50 ML IV SCH (13:16)
[2023-09-15] MEDS: AZITHROMYCIN 500 MG in NS 250 ML IV SCH (14:53)
[2023-09-15] MEDS: NORMAL SALINE 5 ML DISP.SYRIN IVF SCH ×3 (14:54→22:00)
[2023-09-15] MEDS ORDERED: BALSAM PERU/CASTOR OIL 56.7 GM OINT...G. TP ONE (16:00)
[2023-09-16] VITALS (15 sets, daily range): BP systolic 117–134; PULSE 60–75; RESP 17–19; TEMP 97.6–98.6; O2SAT 97–98
[2023-09-16] MEDS: traZODone HCL 50 MG TABLET (DESYREL) PO SCH ×2 (03:00→20:57)
[2023-09-16 04:02] LABS: ERYTHROCYTE SEDIMENTATION RATE 47 MM/HR (0-20)
[2023-09-16 04:09] LABS: BASOPHILS % (AUTO) 0.1 % (0.0-2.0); EOSINOPHILS % (AUTO) 0.1 % (0.0-4.0); HEMATOCRIT 30.4 % (36-48); HEMOGLOBIN 9.5 g/dL (12.0-16.0); LYMPHOCYTES # (AUTO) 1.2 K/uL (1.0-5.5); LYMPHOCYTES % (AUTO) 12.9 % (20.5-51.5); MEAN CORPUSCULAR HEMOGLOBIN 28 pg (27-31); MEAN CORPUSCULAR HGB CONC 31 % (32-36); MEAN CORPUSCULAR VOLUME 89 fL (79.0-98.0); MONOCYTES % (AUTO) 10.6 % (1.7-9.3); NEUTROPHILS % (AUTO) 76.3 % (40.0-70.0); PLATELET COUNT (AUTO) 389 K/uL (130-430); RED BLOOD CELL COUNT(AUTO) 3.42 MIL/uL (4.2-6.2); RED CELL DISTRIBUTION WIDTH 13.7 % (9.0-15.0); WHITE BLOOD COUNT (AUTO) 9.2 K/uL (4.8-10.8)
[2023-09-16 04:24] LABS: CALCIUM 9.3 mg/dL (8.4-11.0); CHLORIDE 98 mmol/L (98-107); CREATININE 0.41 mg/dL (0.55-1.30); GLUCOSE 116 mg/dL (74-106); POTASSIUM 3.5 mmol/L (3.5-5.1); SODIUM SERUM 138 mmol/L (136-145); UREA NITROGEN, BLOOD 22 mg/dL (8-21)
[2023-09-16] MEDS: ALBUTEROL SULFATE 0.083% 2.5 MG/3 ML VIAL.NEB INH SCH ×6 (04:26→23:59)
[2023-09-16] MEDS: IPRATROPIUM BROM 0.5 MG/2.5 ML VIAL.NEB (ATROVENT) INH SCH ×6 (04:26→23:59)
[2023-09-16 05:52] LABS: ANION GAP 0 (5-15); CARBON DIOXIDE 42 mmol/L (23-29)
[2023-09-16] MEDS: NORMAL SALINE 5 ML DISP.SYRIN IVF SCH ×3 (06:33→20:59)
[2023-09-16] MEDS: PANTOPRAZOLE SODIUM 40 MG TAB PO SCH (08:29)
[2023-09-16] MEDS: PREGABALIN 75 MG CAPSULE (LYRICA) PO SCH (08:29)
[2023-09-16] MEDS: METHYLPREDNISOLONE SOD SUCC 40 MG/ML VIAL IVP SCH ×2 (08:30→20:57)
[2023-09-16] MEDS: amLODIPine BESYLATE 10 MG TABLET PO SCH (08:30)
[2023-09-16] MEDS: APIXABAN 2.5 MG TABLET PO SCH ×2 (08:31→20:58)
[2023-09-16] MEDS: BALSAM PERU/CASTOR OIL 56.7 GM OINT...G. TP SCH (08:52)
[2023-09-16] MEDS: cefTRIAXone 1 GM IVPB PREMIX 50 ML IV SCH (13:30)
[2023-09-16] MEDS: AZITHROMYCIN 500 MG in NS 250 ML IV SCH (14:40)
[2023-09-17] VITALS (13 sets, daily range): BP systolic 102–140; PULSE 57–77; RESP 12–16; TEMP 97.5–98.2; O2SAT 92–100
[2023-09-17] MEDS: NORMAL SALINE 5 ML DISP.SYRIN IVF SCH ×3 (05:09→21:30)
[2023-09-17 05:52] LABS: ERYTHROCYTE SEDIMENTATION RATE 49 MM/HR (0-20)
[2023-09-17 05:59] LABS: BASOPHILS % (AUTO) 0.1 % (0.0-2.0); HEMOGLOBIN 10.9 g/dL (12.0-16.0); LYMPHOCYTES # (AUTO) 0.7 K/uL (1.0-5.5); LYMPHOCYTES % (AUTO) 8.4 % (20.5-51.5); MEAN CORPUSCULAR HEMOGLOBIN 29 pg (27-31); MEAN CORPUSCULAR HGB CONC 33 % (32-36); MEAN CORPUSCULAR VOLUME 89 fL (79.0-98.0); MONOCYTES # (AUTO) 0.4 K/uL (0.0-1.0); MONOCYTES % (AUTO) 5.2 % (1.7-9.3); NEUTROPHILS # (AUTO) 7.4 K/uL (1.8-7.7); NEUTROPHILS % (AUTO) 86.3 % (40.0-70.0); PLATELET COUNT (AUTO) 403 K/uL (130-430); RED BLOOD CELL COUNT(AUTO) 3.73 MIL/uL (4.2-6.2); RED CELL DISTRIBUTION WIDTH 13.8 % (9.0-15.0); WHITE BLOOD COUNT (AUTO) 8.5 K/uL (4.8-10.8)
[2023-09-17 06:40] LABS: ANION GAP 2 (5-15); CARBON DIOXIDE 38 mmol/L (23-29); CHLORIDE 101 mmol/L (98-107); GLUCOSE 139 mg/dL (74-106); POTASSIUM 4.4 mmol/L (3.5-5.1); SODIUM SERUM 141 mmol/L (136-145); UREA NITROGEN, BLOOD 15 mg/dL (8-21)
[2023-09-17] MEDS: ALBUTEROL SULFATE 0.083% 2.5 MG/3 ML VIAL.NEB INH SCH ×5 (07:13→23:05)
[2023-09-17] MEDS: IPRATROPIUM BROM 0.5 MG/2.5 ML VIAL.NEB (ATROVENT) INH SCH ×5 (07:13→23:05)
[2023-09-17] MEDS: BALSAM PERU/CASTOR OIL 56.7 GM OINT...G. TP SCH (09:29)
[2023-09-17] MEDS: PANTOPRAZOLE SODIUM 40 MG TAB PO SCH (09:30)
[2023-09-17] MEDS: METHYLPREDNISOLONE SOD SUCC 40 MG/ML VIAL IVP SCH ×2 (09:30→21:19)
[2023-09-17] MEDS: amLODIPine BESYLATE 10 MG TABLET PO SCH (09:30)
[2023-09-17] MEDS: PREGABALIN 75 MG CAPSULE (LYRICA) PO SCH (09:31)
[2023-09-17] MEDS: APIXABAN 2.5 MG TABLET PO SCH ×2 (09:32→21:18)
[2023-09-17] MEDS: cefTRIAXone 1 GM IVPB PREMIX 50 ML IV SCH (14:03)
[2023-09-17] MEDS: AZITHROMYCIN 500 MG in NS 250 ML IV SCH (15:23)
[2023-09-17] MEDS: traZODone HCL 50 MG TABLET (DESYREL) PO SCH (21:18)
[2023-09-18] VITALS (14 sets, daily range): BP systolic 125–150; PULSE 57–87; RESP 16–20; TEMP 97.6–98.7; O2SAT 94–100
[2023-09-18] MEDS: IPRATROPIUM BROM 0.5 MG/2.5 ML VIAL.NEB (ATROVENT) INH SCH ×6 (03:05→23:16)
[2023-09-18] MEDS: ALBUTEROL SULFATE 0.083% 2.5 MG/3 ML VIAL.NEB INH SCH ×6 (03:05→23:17)
[2023-09-18] MEDS: NORMAL SALINE 5 ML DISP.SYRIN IVF SCH ×3 (05:16→20:23)
[2023-09-18 06:47] LABS: BASOPHILS % (AUTO) 0.2 % (0.0-2.0); HEMATOCRIT 31.7 % (36-48); HEMOGLOBIN 10.1 g/dL (12.0-16.0); MEAN CORPUSCULAR HEMOGLOBIN 28 pg (27-31); MEAN CORPUSCULAR HGB CONC 32 % (32-36); MEAN CORPUSCULAR VOLUME 88 fL (79.0-98.0); MONOCYTES # (AUTO) 0.7 K/uL (0.0-1.0); MONOCYTES % (AUTO) 6.9 % (1.7-9.3); NEUTROPHILS # (AUTO) 7.9 K/uL (1.8-7.7); NEUTROPHILS % (AUTO) 82.9 % (40.0-70.0); PLATELET COUNT (AUTO) 383 K/uL (130-430); RED BLOOD CELL COUNT(AUTO) 3.58 MIL/uL (4.2-6.2); RED CELL DISTRIBUTION WIDTH 13.8 % (9.0-15.0); WHITE BLOOD COUNT (AUTO) 9.6 K/uL (4.8-10.8)
[2023-09-18 07:19] LABS: ANION GAP 3 (5-15); CALCIUM 9.7 mg/dL (8.4-11.0); CARBON DIOXIDE 36 mmol/L (23-29); CHLORIDE 102 mmol/L (98-107); CREATININE 0.45 mg/dL (0.55-1.30); GLUCOSE 111 mg/dL (74-106); POTASSIUM 4.3 mmol/L (3.5-5.1); SODIUM SERUM 141 mmol/L (136-145); UREA NITROGEN, BLOOD 17 mg/dL (8-21)
[2023-09-18 08:07] LABS: ERYTHROCYTE SEDIMENTATION RATE 20 MM/HR (0-20)
[2023-09-18] MEDS: PREGABALIN 75 MG CAPSULE (LYRICA) PO SCH (08:42)
[2023-09-18] MEDS: METHYLPREDNISOLONE SOD SUCC 40 MG/ML VIAL IVP SCH ×2 (08:43→20:23)
[2023-09-18] MEDS: amLODIPine BESYLATE 10 MG TABLET PO SCH (08:43)
[2023-09-18] MEDS: PANTOPRAZOLE SODIUM 40 MG TAB PO SCH (08:43)
[2023-09-18] MEDS: BALSAM PERU/CASTOR OIL 56.7 GM OINT...G. TP SCH (08:43)
[2023-09-18] MEDS: APIXABAN 2.5 MG TABLET PO SCH ×2 (08:46→20:23)
[2023-09-18] MEDS ORDERED: DOXY100C5 PO (12:18)
[2023-09-18] MEDS: cefTRIAXone 1 GM IVPB PREMIX 50 ML IV SCH (13:30)
[2023-09-18] MEDS: traZODone HCL 50 MG TABLET (DESYREL) PO SCH (20:23)
[2023-09-19] VITALS: BP_SYST 132; PULSE 62; RESP 18; TEMP 97.6; O2SAT 98
[2023-09-19 03:00] VITALS: PULSE 55
[2023-09-19] MEDS: IPRATROPIUM BROM 0.5 MG/2.5 ML VIAL.NEB (ATROVENT) INH SCH ×2 (03:12→07:16)
[2023-09-19] MEDS: ALBUTEROL SULFATE 0.083% 2.5 MG/3 ML VIAL.NEB INH SCH ×2 (03:13→07:16)
[2023-09-19 05:51] LABS: HEMATOCRIT 33.7 % (36-48); HEMOGLOBIN 10.5 g/dL (12.0-16.0); LYMPHOCYTES # (AUTO) 0.7 K/uL (1.0-5.5); LYMPHOCYTES % (AUTO) 6.7 % (20.5-51.5); MEAN CORPUSCULAR HEMOGLOBIN 28 pg (27-31); MEAN CORPUSCULAR HGB CONC 31 % (32-36); MEAN CORPUSCULAR VOLUME 89 fL (79.0-98.0); MONOCYTES # (AUTO) 0.4 K/uL (0.0-1.0); MONOCYTES % (AUTO) 3.9 % (1.7-9.3); NEUTROPHILS # (AUTO) 9.6 K/uL (1.8-7.7); NEUTROPHILS % (AUTO) 89.4 % (40.0-70.0); PLATELET COUNT (AUTO) 357 K/uL (130-430); RED CELL DISTRIBUTION WIDTH 14.2 % (9.0-15.0); WHITE BLOOD COUNT (AUTO) 10.7 K/uL (4.8-10.8)
[2023-09-19 06:04] LABS: ERYTHROCYTE SEDIMENTATION RATE 29 MM/HR (0-20)
[2023-09-19] MEDS: NORMAL SALINE 5 ML DISP.SYRIN IVF SCH (06:05)
[2023-09-19 06:44] LABS: ALANINE AMINOTRANSFERASE 16 U/L (12-78); ALBUMIN 2.8 g/dL (3.4-4.8); ANION GAP 2 (5-15); ASPARTATE AMINOTRANSFERASE 9 U/L (10-37); CALCIUM 9.6 mg/dL (8.4-11.0); CARBON DIOXIDE 36 mmol/L (23-29); CHLORIDE 101 mmol/L (98-107); CREATININE 0.52 mg/dL (0.55-1.30); GLUCOSE 129 mg/dL (74-106); POTASSIUM 4.5 mmol/L (3.5-5.1); SODIUM SERUM 139 mmol/L (136-145); TOTAL BILIRUBIN 0.2 mg/dL (0.0-1.0); TOTAL PROTEIN, SERUM 6.2 g/dL (6.4-8.3); UREA NITROGEN, BLOOD 24 mg/dL (8-21)
[2023-09-19 07:16] VITALS: O2SAT 99
[2023-09-19 08:22] VITALS: BP_SYST 132; PULSE 56; RESP 17; TEMP 97.6; O2SAT 100
[2023-09-19] MEDS: PANTOPRAZOLE SODIUM 40 MG TAB PO SCH (09:46)
[2023-09-19] MEDS: PREGABALIN 75 MG CAPSULE (LYRICA) PO SCH (09:46)
[2023-09-19] MEDS: METHYLPREDNISOLONE SOD SUCC 40 MG/ML VIAL IVP SCH (09:47)
[2023-09-19] MEDS: APIXABAN 2.5 MG TABLET PO SCH (09:49)
[2023-09-19 09:59] VITALS: BP_SYST 132; PULSE 56; RESP 17; TEMP 97.6; O2SAT 100
== END 2023-09-19 10:00 | disposition hospice, home (50) | DRG 871 ==
LOC: SED 11:45 → STU 13:13 → SMU 19:31 → STU 19:47 → SMU 09-18 12:06
PROVIDERS: ADMIT Preventive Medicine Preventive Medicine/Occupational Environmental Medicine; ATTEND Preventive Medicine Preventive Medicine/Occupational Environmental Medicine
PROC: 5A09357 Assistance with Respiratory Ventilation, Less than 24 Consecutive Hours, Continuous Positive Airway Pressure (ICD-10-PCS; principal; 2023-09-16)
PROC: 5A09357 Assistance with Respiratory Ventilation, Less than 24 Consecutive Hours, Continuous Positive Airway Pressure (ICD-10-PCS; 2023-09-17)
PROC: 5A09357 Assistance with Respiratory Ventilation, Less than 24 Consecutive Hours, Continuous Positive Airway Pressure (ICD-10-PCS; 2023-09-18)
PROC: 5A09357 Assistance with Respiratory Ventilation, Less than 24 Consecutive Hours, Continuous Positive Airway Pressure (ICD-10-PCS; 2023-09-19)
DX: A41.9 Sepsis, unspecified organism (principal); J18.9 Pneumonia, unspecified organism; J96.01 Acute respiratory failure with hypoxia; J44.1 Chronic obstructive pulmonary disease with (acute) exacerbation; J44.0 Chronic obstructive pulmonary disease with (acute) lower respiratory infection; E44.0 Moderate protein-calorie malnutrition; Z68.1 Body mass index [BMI] 19.9 or less, adult; F03.90 Unspecified dementia, unspecified severity, without behavioral disturbance, psychotic disturbance, mood disturbance, and anxiety; F41.9 Anxiety disorder, unspecified; G47.00 Insomnia, unspecified; D64.9 Anemia, unspecified; Z20.822 Contact with and (suspected) exposure to COVID-19; G62.9 Polyneuropathy, unspecified; E88.09 Other disorders of plasma-protein metabolism, not elsewhere classified; I10 Essential (primary) hypertension; D75.839 Thrombocytosis, unspecified; I48.91 Unspecified atrial fibrillation; K21.9 Gastro-esophageal reflux disease without esophagitis; Z79.01 Long term (current) use of anticoagulants; Z87.891 Personal history of nicotine dependence
CPT/HCPCS: 36415; 71045; 71250-TC; 76376; 80048; 80053; 80076; 83605; 83880; 84484; 85025; 85651-TC; 86738; 87040; 93005; 94640; 94660; 94760; 96365; 96367; 96375; 97110-GP; 97163-GP; 97530-GP; 99285; C9113; G0378; J0456; J0696; J1030; J2930; J7050

== ENCOUNTER 2024-03-18 11:47 | Inpatient (IN) | payer OTHER, MEDICARE ==
[2024-03-18] VITALS (9 sets, daily range): BP systolic 119–131; PULSE 61–94; RESP 20–30; TEMP 97.7; O2SAT 93–100
[~2024-03-18] VITALS: Ht 162.6 cm; Wt 51.7 kg
[~2024-03-18 11:47] MED LIST: ALPR1TAB7 PO; AMLO10TA88 PO; APIX5TAB PO; DOXY100C5 PO; PRED10TA PO; PREG75CA PO; PRO40 PO; TRAZ-250 PO
[2024-03-18] MEDS ORDERED: MOM PO (12:10)
[2024-03-18] MEDS ORDERED: IPRA4AER INH (12:10)
[2024-03-18] MEDS ORDERED: ACET-73 PO (12:10)
[2024-03-18] MEDS ORDERED: AMIN887L14 PO (12:10)
[2024-03-18] MEDS ORDERED: TRAM50TA2 PO (12:10)
[2024-03-18] MEDS ORDERED: SENN8.6T19 PO (12:10)
[2024-03-18 12:13] LABS: BLOOD GAS BASE EXCESS 20.1 mmol/L (-3.0-3.0); BLOOD GAS HCO3 50.8 mmol/L (21.0-27.0); BLOOD GAS PH 7.327 (7.350-7.450)
[2024-03-18 12:16] LABS: BLOOD GAS PCO2 99.2 mmHg (35.0-45.0); BLOOD GAS PO2 48.9 mmHg (75.0-100.0)
[2024-03-18 12:17] LABS: ABG O2 SAT% ESTIMATE 78.3 % (94.0-100.0)
[2024-03-18 12:18] LABS: ALLEN'S TEST POSITIVE (P)
[2024-03-18 12:26] LABS: BASOPHILS % (AUTO) 0.4 % (0.0-2.0); EOSINOPHILS # (AUTO) 0.2 K/uL (0.0-0.4); EOSINOPHILS % (AUTO) 2.2 % (0.0-4.0); HEMATOCRIT 37.7 % (36-48); HEMOGLOBIN 11.8 g/dL (12.0-16.0); LYMPHOCYTES # (AUTO) 1.1 K/uL (1.0-5.5); LYMPHOCYTES % (AUTO) 10.6 % (20.5-51.5); MEAN CORPUSCULAR HEMOGLOBIN 28 pg (27-31); MEAN CORPUSCULAR HGB CONC 31 % (32-36); MEAN CORPUSCULAR VOLUME 89 fL (79.0-98.0); MONOCYTES % (AUTO) 9.3 % (1.7-9.3); NEUTROPHILS # (AUTO) 7.9 K/uL (1.8-7.7); NEUTROPHILS % (AUTO) 77.5 % (40.0-70.0); PLATELET COUNT (AUTO) 263 K/uL (130-430); RED BLOOD CELL COUNT(AUTO) 4.25 MIL/uL (4.2-6.2); RED CELL DISTRIBUTION WIDTH 13.7 % (9.0-15.0); WHITE BLOOD COUNT (AUTO) 10.2 K/uL (4.8-10.8)
[2024-03-18 12:38] LABS: ANION GAP 1 (5-15); CALCIUM 9.5 mg/dL (8.4-11.0); CHLORIDE 98 mmol/L (98-107); CREATININE 0.52 mg/dL (0.55-1.30); GLUCOSE 133 mg/dL (74-106); SODIUM SERUM 144 mmol/L (136-145); UREA NITROGEN, BLOOD 22 mg/dL (8-21)
[2024-03-18 12:42] LABS: CARBON DIOXIDE 45 mmol/L (23-29)
[2024-03-18] MEDS: methylPREDNISolone SOD SUCC/PF 62.5 MG/ML VIAL IVP ONE (13:35)
[2024-03-18] MEDS ORDERED: ONDANSETRON HCL 4 MG/2 ML VIAL IVP PRN (14:45)
[2024-03-18] MEDS ORDERED: MORPHINE 4 MG INJ. 4 MG/ML VIAL IVP PRN (14:45)
[2024-03-18] MEDS: IPRATROPIUM/ALBUTEROL SULFATE 3 ML AMPUL.NEB (DUONEB) INH ONE (15:13)
[2024-03-18] MEDS: ALBUTEROL SULFATE 0.083% 2.5 MG/3 ML VIAL.NEB INH ONE (15:14)
[2024-03-18] MEDS: NACL 0.9% 1,000 ML IV SCH ×2 (15:15→21:32)
[2024-03-18] MEDS: IPRATROPIUM BROM 0.5 MG/2.5 ML VIAL.NEB (ATROVENT) INH ONE (15:16)
[2024-03-18 15:55] LABS: COVID19 ANTIGEN SOFIA FIA NEGATIVE (NEGATIVE)
[2024-03-18] MEDS ORDERED: AZITHROMYCIN 500 MG in NS 250 ML IV ONE (16:00)
[2024-03-18 16:12] LABS: INFLUENZA TYPE A NEGATIVE (NEGATIVE); INFLUENZA TYPE B NEGATIVE (NEGATIVE)
[2024-03-18] MEDS: AZITHROMYCIN 500 MG in NS 250 ML IV ONE (16:47)
[2024-03-18] MEDS ORDERED: AZITHROMYCIN 500 MG/VIAL (ZITHROMAX) IV ONE (17:09)
[2024-03-18] MEDS ORDERED: *LOVENOX 1MG/KG Q12H/PHARMACY XX ONE (18:30)
[2024-03-18] MEDS: ENOXAPARIN SODIUM 60 MG/0.6 ML SYRINGE SUBCUT SCH (21:30)
[2024-03-18] MEDS: METHYLPREDNISOLONE SOD SUCC 40 MG/ML VIAL IVP SCH (21:32)
[2024-03-18] MEDS: ALBUTEROL SULFATE 0.083% 2.5 MG/3 ML VIAL.NEB INH SCH (23:02)
[2024-03-18] MEDS: IPRATROPIUM BROM 0.5 MG/2.5 ML VIAL.NEB (ATROVENT) INH SCH (23:02)
[2024-03-19] VITALS (13 sets, daily range): BP systolic 120–147; PULSE 56–78; RESP 16–28; TEMP 97.1–98.8; O2SAT 96–100
[2024-03-19 04:42] LABS: BASOPHILS % (AUTO) 0.2 % (0.0-2.0); HEMATOCRIT 32.3 % (36-48); HEMOGLOBIN 10.1 g/dL (12.0-16.0); LYMPHOCYTES # (AUTO) 0.4 K/uL (1.0-5.5); LYMPHOCYTES % (AUTO) 7.5 % (20.5-51.5); MEAN CORPUSCULAR HEMOGLOBIN 28 pg (27-31); MEAN CORPUSCULAR HGB CONC 31 % (32-36); MEAN CORPUSCULAR VOLUME 89 fL (79.0-98.0); MONOCYTES # (AUTO) 0.1 K/uL (0.0-1.0); MONOCYTES % (AUTO) 1.2 % (1.7-9.3); NEUTROPHILS # (AUTO) 4.3 K/uL (1.8-7.7); NEUTROPHILS % (AUTO) 91.1 % (40.0-70.0); PLATELET COUNT (AUTO) 222 K/uL (130-430); RED BLOOD CELL COUNT(AUTO) 3.65 MIL/uL (4.2-6.2); RED CELL DISTRIBUTION WIDTH 13.1 % (9.0-15.0); WHITE BLOOD COUNT (AUTO) 4.8 K/uL (4.8-10.8)
[2024-03-19 04:46] LABS: ALANINE AMINOTRANSFERASE 16 U/L (12-78); ALBUMIN 2.6 g/dL (3.4-4.8); ANION GAP 0 (5-15); ASPARTATE AMINOTRANSFERASE 17 U/L (10-37); CALCIUM 9.2 mg/dL (8.4-11.0); CHLORIDE 103 mmol/L (98-107); CREATININE 0.38 mg/dL (0.55-1.30); GLUCOSE 125 mg/dL (74-106); POTASSIUM 4.8 mmol/L (3.5-5.1); SODIUM SERUM 146 mmol/L (136-145); TOTAL BILIRUBIN 0.2 mg/dL (0.0-1.0); TOTAL PROTEIN, SERUM 5.8 g/dL (6.4-8.3); UREA NITROGEN, BLOOD 29 mg/dL (8-21)
[2024-03-19 04:59] LABS: CARBON DIOXIDE 43 mmol/L (23-29)
[2024-03-19 08:24] LABS: ALLEN'S TEST POSITIVE (P)
[2024-03-19 08:25] LABS: BLOOD GAS PCO2 64.5 mmHg (35.0-45.0); BLOOD GAS PH 7.421 (7.350-7.450); BLOOD GAS PO2 69.4 mmHg (75.0-100.0)
[2024-03-19 08:26] LABS: ABG O2 SAT% ESTIMATE 93.6 % (94.0-100.0)
[2024-03-19] MEDS: AZITHROMYCIN 500 MG in NS 250 ML IV SCH (16:00)
[2024-03-20] VITALS (14 sets, daily range): BP systolic 132–164; PULSE 71–82; RESP 18; TEMP 97.2–98.9; O2SAT 93–100
[2024-03-20 10:53] LABS: BASOPHILS % (AUTO) 0.1 % (0.0-2.0); HEMATOCRIT 32.4 % (36-48); HEMOGLOBIN 10.5 g/dL (12.0-16.0); LYMPHOCYTES # (AUTO) 0.4 K/uL (1.0-5.5); LYMPHOCYTES % (AUTO) 4.8 % (20.5-51.5); MEAN CORPUSCULAR HEMOGLOBIN 28 pg (27-31); MEAN CORPUSCULAR HGB CONC 33 % (32-36); MEAN CORPUSCULAR VOLUME 85 fL (79.0-98.0); MONOCYTES # (AUTO) 0.6 K/uL (0.0-1.0); NEUTROPHILS % (AUTO) 87.1 % (40.0-70.0); PLATELET COUNT (AUTO) 235 K/uL (130-430); RED CELL DISTRIBUTION WIDTH 13.2 % (9.0-15.0); WHITE BLOOD COUNT (AUTO) 8.1 K/uL (4.8-10.8)
[2024-03-20 10:57] LABS: ANION GAP 5 (5-15); CALCIUM 8.8 mg/dL (8.4-11.0); CARBON DIOXIDE 36 mmol/L (23-29); CHLORIDE 101 mmol/L (98-107); CREATININE 0.47 mg/dL (0.55-1.30); GLUCOSE 118 mg/dL (74-106); POTASSIUM 3.3 mmol/L (3.5-5.1); SODIUM SERUM 142 mmol/L (136-145); UREA NITROGEN, BLOOD 12 mg/dL (8-21)
[2024-03-20 11:41] LABS: ABG O2 SAT% ESTIMATE 97.2 % (94.0-100.0); BLOOD GAS BASE EXCESS 10.6 mmol/L (-3.0-3.0); BLOOD GAS HCO3 35.6 mmol/L (21.0-27.0); BLOOD GAS PCO2 49.4 mmHg (35.0-45.0); BLOOD GAS PH 7.476 (7.350-7.450); BLOOD GAS PO2 88.7 mmHg (75.0-100.0)
[2024-03-20] MEDS: ACETAMINOPHEN 650 MG/20.3 ML UDC GT PRN (16:10)
[2024-03-20] MEDS: LORazepam 2 MG/ML VIAL IVP PRN (16:47)
[2024-03-20] MEDS ORDERED: COMMUNICATION ORDER XX ONE (19:15)
[2024-03-20] MEDS: PREGABALIN 75 MG CAPSULE (LYRICA) PO SCH (20:56)
[2024-03-20] MEDS: APIXABAN 2.5 MG TABLET PO SCH (20:57)
[2024-03-21] VITALS (16 sets, daily range): BP systolic 126–145; PULSE 51–84; RESP 16–18; TEMP 97.7–98.3; O2SAT 93–100
[2024-03-21 06:12] LABS: HEMATOCRIT 31.1 % (36-48); HEMOGLOBIN 10.1 g/dL (12.0-16.0); LYMPHOCYTES # (AUTO) 0.4 K/uL (1.0-5.5); MEAN CORPUSCULAR HEMOGLOBIN 28 pg (27-31); MEAN CORPUSCULAR HGB CONC 32 % (32-36); MEAN CORPUSCULAR VOLUME 86 fL (79.0-98.0); MONOCYTES # (AUTO) 0.3 K/uL (0.0-1.0); MONOCYTES % (AUTO) 5.3 % (1.7-9.3); NEUTROPHILS # (AUTO) 5.1 K/uL (1.8-7.7); NEUTROPHILS % (AUTO) 87.7 % (40.0-70.0); PLATELET COUNT (AUTO) 217 K/uL (130-430); RED BLOOD CELL COUNT(AUTO) 3.62 MIL/uL (4.2-6.2); RED CELL DISTRIBUTION WIDTH 13.5 % (9.0-15.0); WHITE BLOOD COUNT (AUTO) 5.8 K/uL (4.8-10.8)
[2024-03-21 06:36] LABS: ANION GAP 1 (5-15); CALCIUM 8.9 mg/dL (8.4-11.0); CARBON DIOXIDE 39 mmol/L (23-29); CHLORIDE 104 mmol/L (98-107); CREATININE 0.52 mg/dL (0.55-1.30); GLUCOSE 134 mg/dL (74-106); POTASSIUM 3.9 mmol/L (3.5-5.1); SODIUM SERUM 144 mmol/L (136-145); UREA NITROGEN, BLOOD 17 mg/dL (8-21)
[2024-03-21 06:50] LABS: BLOOD GAS PCO2 67.9 mmHg (35.0-45.0); BLOOD GAS PH 7.376 (7.350-7.450)
[2024-03-21 06:51] LABS: ABG O2 SAT% ESTIMATE 98.4 % (94.0-100.0); BLOOD GAS BASE EXCESS 11.3 mmol/L (-3.0-3.0); BLOOD GAS HCO3 38.9 mmol/L (21.0-27.0); BLOOD GAS PO2 131.2 mmHg (75.0-100.0); FRACTIONATED INSPIRED OXYGEN 0.28 % (0.21-100.00)
[2024-03-21] MEDS: amLODIPine BESYLATE 10 MG TABLET PO SCH (09:03)
[2024-03-21] MEDS: ACETAMINOPHEN 325 MG TABLET PO PRN (23:58)
[2024-03-22] VITALS (9 sets, daily range): BP systolic 120–142; PULSE 46–80; RESP 16–18; TEMP 98.1–98.8; O2SAT 95–99
[2024-03-22 05:02] LABS: BASOPHILS % (AUTO) 0.1 % (0.0-2.0); HEMOGLOBIN 10.4 g/dL (12.0-16.0); LYMPHOCYTES # (AUTO) 0.4 K/uL (1.0-5.5); LYMPHOCYTES % (AUTO) 7.5 % (20.5-51.5); MEAN CORPUSCULAR HEMOGLOBIN 28 pg (27-31); MEAN CORPUSCULAR HGB CONC 33 % (32-36); MEAN CORPUSCULAR VOLUME 85 fL (79.0-98.0); MONOCYTES # (AUTO) 0.2 K/uL (0.0-1.0); MONOCYTES % (AUTO) 2.6 % (1.7-9.3); NEUTROPHILS # (AUTO) 5.2 K/uL (1.8-7.7); NEUTROPHILS % (AUTO) 89.8 % (40.0-70.0); PLATELET COUNT (AUTO) 222 K/uL (130-430); RED BLOOD CELL COUNT(AUTO) 3.76 MIL/uL (4.2-6.2); RED CELL DISTRIBUTION WIDTH 13.6 % (9.0-15.0); WHITE BLOOD COUNT (AUTO) 5.8 K/uL (4.8-10.8)
[2024-03-22 05:17] LABS: ALANINE AMINOTRANSFERASE 15 U/L (12-78); ALBUMIN 2.7 g/dL (3.4-4.8); ANION GAP 0 (5-15); ASPARTATE AMINOTRANSFERASE 10 U/L (10-37); CALCIUM 8.4 mg/dL (8.4-11.0); CARBON DIOXIDE 38 mmol/L (23-29); CHLORIDE 102 mmol/L (98-107); CREATININE 0.52 mg/dL (0.55-1.30); GLUCOSE 129 mg/dL (74-106); POTASSIUM 3.9 mmol/L (3.5-5.1); SODIUM SERUM 140 mmol/L (136-145); TOTAL BILIRUBIN 0.3 mg/dL (0.0-1.0); TOTAL PROTEIN, SERUM 5.9 g/dL (6.4-8.3); UREA NITROGEN, BLOOD 21 mg/dL (8-21)
[2024-03-22] MEDS: METHYLPREDNISOLONE SOD SUCC 40 MG/ML VIAL IVP SCH (06:32)
[2024-03-22 09:41] LABS: ABG O2 SAT% ESTIMATE 97.5 % (94.0-100.0); BLOOD GAS HCO3 37.9 mmol/L (21.0-27.0); BLOOD GAS PH 7.374 (7.350-7.450); BLOOD GAS PO2 104.8 mmHg (75.0-100.0)
[2024-03-22 09:58] LABS: BLOOD GAS PCO2 66.5 mmHg (35.0-45.0)
[2024-03-22 09:59] LABS: BLOOD GAS BASE EXCESS 10.4 mmol/L (-3.0-3.0)
== END 2024-03-22 14:37 | DRG 189 ==
LOC: SED 11:47 → STU 14:43
PROVIDERS: ADMIT Internal Medicine; ATTEND Internal Medicine
PROC: 5A09357 Assistance with Respiratory Ventilation, Less than 24 Consecutive Hours, Continuous Positive Airway Pressure (ICD-10-PCS; principal; 2024-03-18)
PROC: 5A09357 Assistance with Respiratory Ventilation, Less than 24 Consecutive Hours, Continuous Positive Airway Pressure (ICD-10-PCS; 2024-03-19)
PROC: 5A09357 Assistance with Respiratory Ventilation, Less than 24 Consecutive Hours, Continuous Positive Airway Pressure (ICD-10-PCS; 2024-03-20)
PROC: 5A09357 Assistance with Respiratory Ventilation, Less than 24 Consecutive Hours, Continuous Positive Airway Pressure (ICD-10-PCS; 2024-03-21)
DX: J96.22 Acute and chronic respiratory failure with hypercapnia (principal); J44.1 Chronic obstructive pulmonary disease with (acute) exacerbation; I10 Essential (primary) hypertension; I48.91 Unspecified atrial fibrillation; F41.9 Anxiety disorder, unspecified; G62.9 Polyneuropathy, unspecified; Z20.822 Contact with and (suspected) exposure to COVID-19; Z79.899 Other long term (current) drug therapy
CPT/HCPCS: 36415; 36600; 71045; 80048; 80053; 82803; 83880; 84484; 85025; 92610-GN; 93005; 94070; 94640; 94660; 94664; 94760; 97110-GP; 97530-GP; 99291; G0378; J0456; J1030; J1650; J2060; J2930; J7050

== ENCOUNTER 2024-03-23 21:59 | Inpatient (IN) | payer OTHER, MEDICARE ==
[~2024-03-23] VITALS: Ht 162.6 cm; Wt 48.1 kg
[~2024-03-23 21:59] MED LIST changes: +ACET-73 PO; +AMIN887L14 PO; +IPRA4AER INH; +MOM PO; +SENN8.6T19 PO; +TRAM50TA2 PO
[2024-03-23 22:04] VITALS: BP_SYST 167; PULSE 94; RESP 28; TEMP 97.3; O2SAT 94
[2024-03-23] MEDS: MAGNESIUM SULFATE 50 ML IV ONE (22:57)
[2024-03-23] MEDS: methylPREDNISolone SOD SUCC/PF 62.5 MG/ML VIAL IVP ONE (22:58)
[2024-03-23] MEDS ORDERED: ACETAMINOPHEN 650 MG SUPP.RECT RC PRN (23:30)
[2024-03-23] MEDS ORDERED: cefTRIAXone 2 GM VIAL IV SCH (23:30)
[2024-03-23 23:38] LABS: BASOPHILS % (AUTO) 0.1 % (0.0-2.0); EOSINOPHILS # (AUTO) 0.2 K/uL (0.0-0.4); HEMATOCRIT 38.1 % (36-48); HEMOGLOBIN 12.1 g/dL (12.0-16.0); LYMPHOCYTES # (AUTO) 3.7 K/uL (1.0-5.5); LYMPHOCYTES % (AUTO) 25.1 % (20.5-51.5); MEAN CORPUSCULAR HEMOGLOBIN 27 pg (27-31); MEAN CORPUSCULAR HGB CONC 32 % (32-36); MEAN CORPUSCULAR VOLUME 86 fL (79.0-98.0); MONOCYTES # (AUTO) 1.4 K/uL (0.0-1.0); MONOCYTES % (AUTO) 9.2 % (1.7-9.3); NEUTROPHILS # (AUTO) 9.6 K/uL (1.8-7.7); NEUTROPHILS % (AUTO) 64.6 % (40.0-70.0); PLATELET COUNT (AUTO) 381 K/uL (130-430); RED BLOOD CELL COUNT(AUTO) 4.43 MIL/uL (4.2-6.2); RED CELL DISTRIBUTION WIDTH 13.3 % (9.0-15.0); WHITE BLOOD COUNT (AUTO) 14.9 K/uL (4.8-10.8)
[2024-03-23] MEDS: IPRATROPIUM/ALBUTEROL SULFATE 3 ML AMPUL.NEB (DUONEB) INH ONE (23:55)
[2024-03-24] VITALS (30 sets, daily range): BP systolic 98–151; PULSE 23–86; RESP 18–46; TEMP 97.6–100; O2SAT 91–98
[2024-03-24] MEDS ORDERED: cefTRIAXone 2 GM VIAL IV ONE
[2024-03-24 00:08] LABS: ALANINE AMINOTRANSFERASE 15 U/L (12-78); ALBUMIN 3.1 g/dL (3.4-4.8); ANION GAP -3 (5-15); ASPARTATE AMINOTRANSFERASE 10 U/L (10-37); BILIRUBIN,DIRECT < 0.1 mg/dL (0.0-0.3); CALCIUM 8.9 mg/dL (8.4-11.0); CHLORIDE 97 mmol/L (98-107); CREATININE 0.56 mg/dL (0.55-1.30); GLUCOSE 176 mg/dL (74-106); POTASSIUM 3.6 mmol/L (3.5-5.1); SODIUM SERUM 141 mmol/L (136-145); TOTAL BILIRUBIN 0.2 mg/dL (0.0-1.0); TOTAL PROTEIN, SERUM 6.4 g/dL (6.4-8.3); UREA NITROGEN, BLOOD 17 mg/dL (8-21)
[2024-03-24] MEDS ORDERED: cefTRIAXone 2 GM VIAL ONE (00:19)
[2024-03-24 00:31] LABS: CARBON DIOXIDE 47 mmol/L (23-29)
[2024-03-24 00:50] LABS: BLOOD GAS PH 7.103 (7.350-7.450); BLOOD GAS PO2 93.6 mmHg (75.0-100.0)
[2024-03-24 00:51] LABS: ABG O2 SAT% ESTIMATE 92.6 % (94.0-100.0); BLOOD GAS HCO3 52.6 mmol/L (21.0-27.0)
[2024-03-24 00:52] LABS: ALLEN'S TEST POSITIVE (P)
[2024-03-24 04:47] LABS: BASOPHILS % (AUTO) 0.1 % (0.0-2.0); HEMATOCRIT 38.4 % (36-48); HEMOGLOBIN 11.8 g/dL (12.0-16.0); LYMPHOCYTES # (AUTO) 0.2 K/uL (1.0-5.5); LYMPHOCYTES % (AUTO) 1.5 % (20.5-51.5); MEAN CORPUSCULAR HEMOGLOBIN 27 pg (27-31); MEAN CORPUSCULAR HGB CONC 31 % (32-36); MEAN CORPUSCULAR VOLUME 87 fL (79.0-98.0); MONOCYTES # (AUTO) 0.3 K/uL (0.0-1.0); MONOCYTES % (AUTO) 1.8 % (1.7-9.3); NEUTROPHILS # (AUTO) 14.2 K/uL (1.8-7.7); NEUTROPHILS % (AUTO) 96.6 % (40.0-70.0); PLATELET COUNT (AUTO) 293 K/uL (130-430); RED BLOOD CELL COUNT(AUTO) 4.42 MIL/uL (4.2-6.2); RED CELL DISTRIBUTION WIDTH 13.2 % (9.0-15.0); WHITE BLOOD COUNT (AUTO) 14.7 K/uL (4.8-10.8)
[2024-03-24 05:14] LABS: ANION GAP 2 (5-15); CHLORIDE 97 mmol/L (98-107); CREATININE 0.49 mg/dL (0.55-1.30); GLUCOSE 149 mg/dL (74-106); POTASSIUM 3.9 mmol/L (3.5-5.1); SODIUM SERUM 141 mmol/L (136-145); TOTAL BILIRUBIN 0.2 mg/dL (0.0-1.0); TOTAL PROTEIN, SERUM 6.3 g/dL (6.4-8.3); UREA NITROGEN, BLOOD 22 mg/dL (8-21)
[2024-03-24] MEDS: methylPREDNISolone SOD SUCC/PF 62.5 MG/ML VIAL IVP SCH (05:23)
[2024-03-24 05:41] LABS: ALANINE AMINOTRANSFERASE 16 U/L (12-78); ASPARTATE AMINOTRANSFERASE 11 U/L (10-37)
[2024-03-24 05:42] LABS: CARBON DIOXIDE 42 mmol/L (23-29)
[2024-03-24] MEDS: IPRATROPIUM/ALBUTEROL SULFATE 3 ML AMPUL.NEB (DUONEB) INH SCH (07:08)
[2024-03-24] MEDS ORDERED: IPRA3AMP9 INH (07:22)
[2024-03-24 07:44] LABS: ABG O2 SAT% ESTIMATE 91.6 % (94.0-100.0); BLOOD GAS BASE EXCESS 11.2 mmol/L (-3.0-3.0); BLOOD GAS HCO3 40.8 mmol/L (21.0-27.0); BLOOD GAS PO2 70.1 mmHg (75.0-100.0)
[2024-03-24 07:51] LABS: BLOOD GAS PCO2 82.8 mmHg (35.0-45.0)
[2024-03-24 07:52] LABS: ALLEN'S TEST POSITIVE (P)
[2024-03-24 12:16] LABS: BLOOD GAS PH 7.436 (7.350-7.450)
[2024-03-24 12:17] LABS: ABG O2 SAT% ESTIMATE 94.3 % (94.0-100.0); BLOOD GAS BASE EXCESS 18.5 mmol/L (-3.0-3.0); BLOOD GAS HCO3 46.3 mmol/L (21.0-27.0); BLOOD GAS PCO2 70.4 mmHg (35.0-45.0); BLOOD GAS PO2 72.1 mmHg (75.0-100.0)
[2024-03-24 12:18] LABS: ALLEN'S TEST POSITIVE (P)
[2024-03-24] MEDS ORDERED: BUDESONIDE 0.5 MG/2 ML AMPUL.NEB INH SCH ×2 (15:00→16:00)
[2024-03-24] MEDS: BUDESONIDE 0.5 MG/2 ML AMPUL.NEB INH ONE (16:14)
[2024-03-24] MEDS: AZITHROMYCIN 500 MG in NS 250 ML IV SCH (16:56)
[2024-03-24] MEDS: BUDESONIDE 0.5 MG/2 ML AMPUL.NEB INH SCH (19:30)
[2024-03-25] VITALS (22 sets, daily range): BP systolic 116–163; PULSE 50–73; RESP 18–27; TEMP 97.9–99.5; O2SAT 92–99
[2024-03-25 04:54] LABS: HEMATOCRIT 33.1 % (36-48); HEMOGLOBIN 10.4 g/dL (12.0-16.0); LYMPHOCYTES # (AUTO) 0.6 K/uL (1.0-5.5); LYMPHOCYTES % (AUTO) 6.5 % (20.5-51.5); MEAN CORPUSCULAR HEMOGLOBIN 27 pg (27-31); MEAN CORPUSCULAR HGB CONC 31 % (32-36); MEAN CORPUSCULAR VOLUME 86 fL (79.0-98.0); MONOCYTES # (AUTO) 0.4 K/uL (0.0-1.0); MONOCYTES % (AUTO) 4.2 % (1.7-9.3); NEUTROPHILS # (AUTO) 7.7 K/uL (1.8-7.7); NEUTROPHILS % (AUTO) 89.3 % (40.0-70.0); PLATELET COUNT (AUTO) 243 K/uL (130-430); RED BLOOD CELL COUNT(AUTO) 3.84 MIL/uL (4.2-6.2); RED CELL DISTRIBUTION WIDTH 13.1 % (9.0-15.0); WHITE BLOOD COUNT (AUTO) 8.6 K/uL (4.8-10.8)
[2024-03-25 05:21] LABS: ALBUMIN 2.7 g/dL (3.4-4.8); CALCIUM 8.8 mg/dL (8.4-11.0); CHLORIDE 97 mmol/L (98-107); CREATININE 0.46 mg/dL (0.55-1.30); GLUCOSE 128 mg/dL (74-106); SODIUM SERUM 140 mmol/L (136-145); TOTAL BILIRUBIN 0.2 mg/dL (0.0-1.0); TOTAL PROTEIN, SERUM 5.6 g/dL (6.4-8.3); UREA NITROGEN, BLOOD 26 mg/dL (8-21)
[2024-03-25 06:07] LABS: ASPARTATE AMINOTRANSFERASE 12 U/L (10-37)
[2024-03-25 06:11] LABS: CARBON DIOXIDE 44 mmol/L (23-29)
[2024-03-25] MEDS: ENOXAPARIN SODIUM 30 MG/0.3 ML SYRINGE SUBCUT SCH (09:34)
[2024-03-25 22:49] LABS: ALANINE AMINOTRANSFERASE 13 U/L (12-78)
[2024-03-26] VITALS (11 sets, daily range): BP systolic 116–162; PULSE 56–66; RESP 16–20; TEMP 97.9–98.6; O2SAT 96–98
[2024-03-26 08:00] LABS: ABG O2 SAT% ESTIMATE 97.1 % (94.0-100.0); BLOOD GAS BASE EXCESS 14.3 mmol/L (-3.0-3.0); BLOOD GAS HCO3 41.2 mmol/L (21.0-27.0); BLOOD GAS PH 7.428 (7.350-7.450); BLOOD GAS PO2 94.3 mmHg (75.0-100.0)
[2024-03-26 08:04] LABS: ALLEN'S TEST POSITIVE (P); BLOOD GAS PCO2 63.8 mmHg (35.0-45.0)
[2024-03-26] MEDS ORDERED: ACETAMINOPHEN 325 MG TABLET PO PRN (17:45)
[2024-03-26] MEDS: ACETAMINOPHEN 325 MG TABLET PO PRN (17:55)
[2024-03-26] MEDS ORDERED: NALOXONE HCL 0.4 MG/ML AMP (NARCAN) IVP PRN (18:15)
[2024-03-26] MEDS: HYDROcodone/ACETAMIN 5-325 MG TAB (NORCO/ VICODIN) PO PRN (18:51)
[2024-03-27] VITALS (12 sets, daily range): BP systolic 145–155; PULSE 52–64; RESP 18–20; TEMP 97–98.1; O2SAT 96–99
[2024-03-27] MEDS: ONDANSETRON HCL 4 MG/2 ML VIAL IVP PRN (20:03)
[2024-03-28] VITALS (14 sets, daily range): BP systolic 147–155; PULSE 50–77; RESP 16–22; TEMP 97.2–99.4; O2SAT 94–99
[2024-03-28] MEDS: IPRATROPIUM/ALBUTEROL SULFATE 3 ML AMPUL.NEB (DUONEB) INH PRN (15:41)
[2024-03-28] MEDS: LORazepam 1 MG TABLET PO PRN (20:25)
[2024-03-29] VITALS (14 sets, daily range): BP systolic 144–172; PULSE 47–74; RESP 16–20; TEMP 97.6–98.4; O2SAT 96–99
[2024-03-29] MEDS ORDERED: ESCITALOPRAM OXALATE 10 MG TABLET PO SCH (09:00)
[2024-03-29] MEDS: cloNIDine HCL 0.2 MG TABLET PO PRN (10:13)
[2024-03-30] VITALS (12 sets, daily range): BP systolic 119–174; PULSE 50–80; RESP 14–18; TEMP 97.8–98.2; O2SAT 2–98
[2024-03-30] MEDS ORDERED: methylPREDNISolone 4 MG TABLET PO ONE ×3 (07:00→21:00)
[2024-03-30] MEDS: methylPREDNISolone 4 MG TABLET PO ONE (12:53)
[2024-03-31] MEDS ORDERED: methylPREDNISolone 4 MG TABLET PO ONE ×4 (07:00→21:00)
[2024-04-01] MEDS ORDERED: methylPREDNISolone 4 MG TABLET PO ONE ×4 (07:00→21:00)
[2024-04-02] MEDS ORDERED: methylPREDNISolone 4 MG TABLET PO ONE ×3 (07:00→21:00)
[2024-04-03] MEDS ORDERED: methylPREDNISolone 4 MG TABLET PO ONE ×2 (07:00→21:00)
[2024-04-04] MEDS ORDERED: methylPREDNISolone 4 MG TABLET PO ONE (07:00)
== END 2024-03-30 16:30 | DRG 177 ==
LOC: SED 21:59 → STU 23:20 → SIC 03-24 02:59 → STU 03-25 19:15
PROVIDERS: ADMIT Family Medicine; ATTEND Family Medicine
PROC: 5A09357 Assistance with Respiratory Ventilation, Less than 24 Consecutive Hours, Continuous Positive Airway Pressure (ICD-10-PCS; principal; 2024-03-24)
PROC: 5A09357 Assistance with Respiratory Ventilation, Less than 24 Consecutive Hours, Continuous Positive Airway Pressure (ICD-10-PCS; 2024-03-25)
PROC: 5A09357 Assistance with Respiratory Ventilation, Less than 24 Consecutive Hours, Continuous Positive Airway Pressure (ICD-10-PCS; 2024-03-29)
DX: J15.69 Pneumonia due to other Gram-negative bacteria (principal); E43 Unspecified severe protein-calorie malnutrition; J96.22 Acute and chronic respiratory failure with hypercapnia; J96.21 Acute and chronic respiratory failure with hypoxia; G93.40 Encephalopathy, unspecified; J44.0 Chronic obstructive pulmonary disease with (acute) lower respiratory infection; Z68.1 Body mass index [BMI] 19.9 or less, adult; J44.1 Chronic obstructive pulmonary disease with (acute) exacerbation; J20.9 Acute bronchitis, unspecified; I48.91 Unspecified atrial fibrillation; R13.10 Dysphagia, unspecified; F41.9 Anxiety disorder, unspecified; I10 Essential (primary) hypertension; Z87.891 Personal history of nicotine dependence; Z79.899 Other long term (current) drug therapy
CPT/HCPCS: 36415; 36600; 71045; 80048; 80053; 80076; 82803; 85025; 87040; 87081; 94070; 94640; 94660; 94760; 96365; 96366; 96375; 99285; G0378; J0456; J0696; J1650; J2405; J2930; J3475; J7050; J7060; J7509; J7626